=== PATIENT | male | born 1965 | race Hispanic/Latino ===

== ENCOUNTER 2020-02-07 15:08 | Emergency (ER) | payer SELFPAY ==
--- NOTE | 2020-02-07 16:03 | RAD REPORT ---
EXAM DESCRIPTION: CT - Head Brain Wo Cont - 02/07/2020 3:52 pm CLINICAL HISTORY: CASH'S PALSY Headache, drowsiness COMPARISON: No comparisons TECHNIQUE: All CT scans are performed using dose optimization technique as appropriate and may inclu de automated exposure control or mA/KV adjustment according to patient size. FINDINGS: No intracranial hemorrhage, hydrocephalus or extra-axial fluid collection.No areas of brai n edema or evidence of midline shift. The paranasal sinuses and mastoids are clear. The calvarium is intact. IMPRESSION: No acute intracranial abnormality.
--- NOTE | 2020-02-07 16:08 | ER ---
Nurse's Notes [facility] Name: Bao Remy Age: 54 yrs Sex: Male : 1965 Arrival Date: 02/07/2020 Time: 15:13 Bed 13 Private MD: Diagnosis: Muse's palsy Presentation: 02/06 15:19 Chief complaint: Patient states: Facial droop on R side, tearing of R eye, unable to ca1 blink on R eye. Started yesterday morning. A\T\Ox4, no drift. No slurring of speech. Denies numbness or weakness on face or one side of the body. Coronavirus screen: Patient denies a cough. Patient denies shortness of breath or difficulty breathing. Patient denies measured and/or subjective temperature greater than 100.4F prior to today's visit. Patient denies travel on a cruise ship or to a country the [facility] currently lists as an affected area. Patient denies contact with known and/or suspected case of COVID-19. Proceed with normal triage. Ebola Screen: Patient negative for fever greater than or equal to 101.5 degrees Fahrenheit, and additional compatible Ebola Virus Disease symptoms Patient denies exposure to infectious person. Patient denies travel to an Ebola-affected area in the 21 days before illness onset. No symptoms or risks identified at this time. Initial Sepsis Screen: Does the patient meet any 2 criteria? No. Patient's initial sepsis screen is negative. Does the patient have a suspected source of infection? No. Patient's initial sepsis screen is negative. Risk Assessment: Do you want to hurt yourself or someone else? Patient reports no desire to harm self or others. Onset of symptoms was February 07, 2020. 15:19 Method Of Arrival: Ambulatory ca1 15:19 Acuity: BRITTANY 3 ca1 16:57 Note no stroke activation. Muse's Palsy. ks7 16:58 No acute neurological deficit is noted. Pre-hospital glucose is not applicable to this ks7 patient. Triage Assessment: 15:43 The onset of the patients symptoms was more than six hours ago. General: Appears ks7 uncomfortable, facial droop, eye droop, mouth droop to R side only. equal sebd teacher strengh, no deficits in extremities. slurred speech. Pain: Denies pain. Neuro: Reports numbness in face right side since woke up yesterday morning with sx. 16:59 General: Behavior is calm, cooperative. ks7 16:59 The onset of the patients symptoms was February 06, 2020 at 08:20. ks7 BULL RIDER: 15:43 LMP N/A - ks7 Stroke Activation: Physician: Stroke Attending; Name: ; Notified At: ; Arrived At: Physician: Chief Stroke Resident; Name: ; Notified At: ; Arrived At: Physician: Stroke Resident; Name: ; Notified At: ; Arrived At: Physician: ED Attending; Name: ; Notified At: ; Arrived At: Physician: ED Resident; Name: ; Notified At: ; Arrived At: 17:00 none. ks7 Historical: - Allergies: 15:23 No Known Allergies; ca1 - PMHx: 15:23 Hypertension; ca1 - PSHx: 15:23 None; ca1 - Immunization history:: Adult Immunizations up to date. - Social history:: Smoking status: Patient reports the use of cigarette tobacco products, smokes one-half pack cigarettes per day. Screenin:24 VAN Screening: Arm Drift: Patient shows no arm weakness. Patient is VAN negative. ca1 Visual Disturbance: No visual disturbance noted. Aphasia: No aphasia noted. Neglect: No neglect noted. 15:45 Abuse screen: Denies threats or abuse. Denies injuries from another. Nutritional ks7 screening: No deficits noted. Tuberculosis screening: No symptoms or risk factors identified. Fall Risk None identified. Assessment: 16:02 VAN Scoring: Arm Drift: Patients demonstrates NO arm weakness. Patient is VAN Negative. ks7 Visual Disturbance: No visual disturbance noted. Aphasia: No aphasia noted. Neglect: No neglect noted. The patient has not been NPO before screening. The patient is alert, and able to follow commands. The patient does not exhibit slurred or garbled speech. The patient is not exhibiting difficulty speaking. The patient is exhibiting difficulty understanding words. The patient is able to swallow own secretions with no drooling or need for suction. Patient tolerated one teaspoon of water. No drooling, immediate coughing, gurgling, or clearing of the throat was noted. The patient tolerated 90mL of water. No drooling, immediate coughing, gurgling, or clearing of the throat was noted. The patient passed the bedside swallow screening. Oral medications may be given as ordered. Contact Physician for further diet orders. Provider notified of bedside swallow screening results: Kalro MENDEZ. T-PA (Activase) Screening: Indications: Definite evidence of stroke, ischemic, embolic, or hypertensive: Treatment will start within 4.5 hours onset of symptoms: No. No evidence of intracranial hemorrhage or CT of head and no evidence of peripheral hemorrhage or recent CVA: Consent for thrombolytic therapy: Contraindications:. 16:05 General: Appears in no apparent distress. Neuro: Reports pt states he woke up yesterday ks7 with facial droop, mouth droop. denies CHAVEZ and pain, no swallowing issues, no extremity weakness. aaox4. 16:56 Reassessment: Patient is alert, oriented x 3, equal unlabored respirations, skin ks7 warm/dry/pink. CT wnl. pt dx Muse's Palsy, not stroke.. Vital Signs: 15:19 BP 174 / 99; Pulse 82; Resp 17 S; Temp 98.1(TE); Pulse Ox 97% on R/A; Weight 106.59 kg ca1 (R); Height 5 ft. 10 in. (177.80 cm) (R); 15:47 BP 111 / 57; Pulse 86; Resp 18; Temp 97.9(TE); Pulse Ox 98% ; Pain 0/10; ks7 16:45 BP 115 / 62; Pulse 80; Resp 18; Temp 98(TE); Pulse Ox 98% ; Pain 0/10; ks7 15:19 Body Mass Index 33.72 (106.59 kg, 177.80 cm) ca1 NIH Stroke Scale Scores: 16:02 NIHSS Score: 3 ks7 ED Course: 15:13 Patient arrived in ED. mr 15:23 Triage completed. ca1 15:23 Arm band placed on right wrist. ca1 15:31 Hallie Campos, ELVIN is Primary Nurse. ks7 15:37 Karlo Cardoso PA is PHCP. jmm 15:37 Heriberto Mckinnon MD is Attending Physician. jmm 15:45 Patient has correct armband on for positive identification. Bed in low position. Call ks7 light in reach. Side rails up X2. 15:45 No provider procedures requiring assistance completed. ks7 15:52 CT Head Brain wo Cont In Process Unspecified. EDMS 15:[address] ks7 16:07 Masoud Jonas MD is Referral Physician. [facility] 16:56 Patient did not have IV access during this emergency room visit. ks7 Administered Medications: No medications were administered Point of Care Testing: Blood Glucose: 16:59 Blood Glucose: 128 mg/dL; ks7 Ranges: Outcome: 16:07 Discharge ordered by . [facility] 16:56 Discharged to home ambulatory. ks7 16:56 Condition: stable 16:56 Discharge instructions given to patient, Instructed on discharge instructions, medication usage, Demonstrated understanding of instructions, medications, Prescriptions given X 2. 17:00 Patient left the ED. ks7 NIH Stroke Scale - NIH Stroke Score Date: 02/07/2020 Time: 16:02 Total Score = 3 1a. Level of Consciousness (LOC) - 0(Alert) 1b. Level of Consciousness (LOC) (Year \T\ Age) - 0(Both) 1c. LOC Commands (Open \T\ Closes Eyes/Bullard Operator) - 0(Both) 2. Best Gaze (Lateral Gaze Paresis) - 0(Normal) 3. Visual Field Loss - 0(No visual loss) 4. Facial Palsy - 2(Partial paralysis) 5a. Left Arm: Motor (10-second hold) - 0(No drift) 5b. Right Arm: Motor (10-second hold) - 0(No drift) 6a. Left Leg: Motor (5-second hold - always test supine) - 0(No drift) 6b. Right Leg: Motor (5-second hold - always test supine) - 0(No drift) 7. Limb Ataxia (finger/nose \T\ heel/connolly - test with eyes open) - 0(Absent) 8. Sensory Loss (pinprick arms/legs/face) - 1(Mild to moderate loss) 9. Best Language: Aphasia (description/naming/reading) - 0(No aphasia) 10. Dysarthria (speech clarity - read or repeat words) - 0(Normal) 11. Extinction and Inattention (visual/tactile/auditory/spatial/personal) - 0(No abnormality) Initials: ks7 Signatures: Dispatcher [employer] EDMS Karlo Cardoso PA PA jmm Rivera, Mary mr Renetta Hollins RN RN ca1 Songcuan, Kathleen, RN RN ks7
--- NOTE | 2020-02-07 16:08 | EDPHYS ---
Physician Documentation [facility] Name: Bao Remy Age: 54 yrs Sex: Male : 1965 Arrival Date: 02/07/2020 Time: 15:13 Bed 13 Private MD: ED Physician Heriberto Mckinnon HPI: 02/06 16:00 This 54 yrs old Male presents to ER via Ambulatory with complaints of Facial jmm Droop, Numbness Of Face. 16:00 The patient presents to the emergency department with facial droop. Onset: The jmm symptoms/episode began/occurred acutely, 1 day(s) ago. Associated signs and symptoms: Pertinent negatives: weakness, fever, cough. This is a 54 year old male with a history of htn that presents to the ED with complaints of right sided facial droop beginning yesterday. Denies recent coughy, congestion. Denies right upper or lower extremity weakness. . 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 - Social history:: Smoking status: Patient reports the use of cigarette tobacco products, smokes one-half pack cigarettes per day. ROS: 16:00 Constitutional: Negative for fever, chills, and weight loss, Cardiovascular: Negative jmm for chest pain, palpitations, and edema, Respiratory: Negative for shortness of breath, cough, wheezing, and pleuritic chest pain. 16:00 Neuro: Positive for facial droop. 16:00 All other systems are negative. Exam: 16:00 Constitutional: This is a well developed, well nourished patient who is awake, alert, jmm and in no acute distress. Head/Face: atraumatic. Eyes: EOMI, no conjunctival erythema appreciated ENT: Moist Mucus Membranes Neck: Trachea midline, Supple Chest/axilla: Normal chest wall appearance and motion. Cardiovascular: Regular rate and rhythm. No edema appreciated Respiratory: Normal respirations, no respiratory distress appreciated Abdomen/GI: Non distended, soft Back: Normal ROM Skin: General appearance color normal MS/ Extremity: Moves all extremities, no obvious deformities appreciated, no edema noted to the lower extremities 16:00 Neuro: Orientation: is normal, Mentation: is normal, Memory: is normal, Cerebellar function: normal finger to nose testing, Motor: Gait: is steady, right sided facial droop noted which includes the right eyebrow. . 16:00 Psych: Behavior/mood is pleasant, cooperative. Vital Signs: 15:19 BP 174 / 99; Pulse 82; Resp 17 S; Temp 98.1(TE); Pulse Ox 97% on R/A; Weight 106.59 kg ca1 (R); Height 5 ft. 10 in. (177.80 cm) (R); 15:47 BP 111 / 57; Pulse 86; Resp 18; Temp 97.9(TE); Pulse Ox 98% ; Pain 0/10; ks7 16:45 BP 115 / 62; Pulse 80; Resp 18; Temp 98(TE); Pulse Ox 98% ; Pain 0/10; ks7 15:19 Body Mass Index 33.72 (106.59 kg, 177.80 cm) ca1 NIH Stroke Scale Scores: 16:02 NIHSS Score: 3 ks7 MDM: 15:55 Patient medically screened. [facility] 16:05 Data reviewed: vital signs, nurses notes. Counseling: I had a detailed discussion with [facility] the patient and/or guardian regarding: the historical points, exam findings, and any diagnostic results supporting the discharge/admit diagnosis, radiology results, the need for outpatient follow up, to return to the emergency department if symptoms worsen or persist or if there are any questions or concerns that arise at home. ED course: CT negative. PE findings consistent with bells palsy. Patient advised to follow up with neuro for reevaluation. Patient is otherwise given strict return precautions. Patient understood and agrees with the plan of care. . 02/06 16:11 Order name: Glucose, Ancillary Testing; Complete Time: 16:13 EDMS 02/06 15:24 Order name: CT Head Brain wo Cont; Complete Time: 16:05 ca1 Administered Medications: No medications were administered Point of Care Testing: Blood Glucose: 16:59 Blood Glucose: 128 mg/dL; ks7 Ranges: Critical Glucose Levels:Adult <50 mg/dl or >400 mg/dl <40 mg/dl or >180 mg/dl Disposition: 18:17 Co-signature as Attending Physician, Heriberto Mckinnon MD. rn Disposition: 02/07/20 16:07 Discharged to Home. Impression: Muse's palsy. - Condition is Stable. - Discharge Instructions: Muse Palsy, Adult. - Prescriptions for Prednisone 20 mg Oral Tablet - take 3 tablets by ORAL route once daily for 12 days Please take 3 tabs by mouth daily for 3 days, then take 2 tabs by mouth daily for 3 days, then take 1 tab by mouth daily for 3 days, then take 1/2 tab by mouth daily for 3 days; 20 tablet. Valtrex 1 g Oral Tablet - take 1 tablet by ORAL route every 8 hours for 7 days; 21 tablet. - Medication Reconciliation Form, Thank You Letter, Antibiotic Education, Prescription Opioid Use form. - Follow up: Masoud Jonas MD; When: 2 - 3 days; Reason: Recheck today's complaints, Continuance of care, Re-evaluation by your physician. NIH Stroke Scale - NIH Stroke Score Date: 02/07/2020 Time: 16:02 Total Score = 3 1a. Level of Consciousness (LOC) - 0(Alert) 1b. Level of Consciousness (LOC) (Year \T\ Age) - 0(Both) 1c. LOC Commands (Open \T\ Closes Eyes/Flight Operations Manager) - 0(Both) 2. Best Gaze (Lateral Gaze Paresis) - 0(Normal) 3. Visual Field Loss - 0(No visual loss) 4. Facial Palsy - 2(Partial paralysis) 5a. Left Arm: Motor (10-second hold) - 0(No drift) 5b. Right Arm: Motor (10-second hold) - 0(No drift) 6a. Left Leg: Motor (5-second hold - always test supine) - 0(No drift) 6b. Right Leg: Motor (5-second hold - always test supine) - 0(No drift) 7. Limb Ataxia (finger/nose \T\ heel/connolly - test with eyes open) - 0(Absent) 8. Sensory Loss (pinprick arms/legs/face) - 1(Mild to moderate loss) 9. Best Language: Aphasia (description/naming/reading) - 0(No aphasia) 10. Dysarthria (speech clarity - read or repeat words) - 0(Normal) 11. Extinction and Inattention (visual/tactile/auditory/spatial/personal) - 0(No abnormality) Initials: ks7 Signatures: Dispatcher [employer] EDMS MickaKarlo calloway PA PA jmm Nieto, Roman, MD MD rn Acob, Renetta RN RN ca1 Hallie Campos RN RN ks7 Corrections: (The following items were deleted from the chart) 17:00 16:07 02/07/2020 16:07 Discharged to Home. Impression: Muse's palsy. Condition ks7 is Stable. Forms are Medication Reconciliation Form, Thank You Letter, Antibiotic Education, Prescription Opioid Use. Follow up: Masoud Jonas; When: 2 - 3 days; Reason: Recheck today's complaints, Continuance of care, Re-evaluation by your physician. bryan
[2020-02-08 06:57] VITALS: BP 111/57; TEMP 97.9; O2SAT 98
== END 2020-02-07 17:00 | disposition home or self-care (01) ==
LOC: ER 15:08 → EDSEX 15:08 → ER 17:00
DX: G51.0 Bell's palsy (principal); I10 Essential (primary) hypertension; F17.210 Nicotine dependence, cigarettes, uncomplicated
CPT/HCPCS: 70450; 82947; 99284

== ENCOUNTER 2025-04-19 07:50 | Inpatient (IN) | payer SELFPAY ==
--- OUTSIDE RECORDS SUMMARY | 2025-04-19 07:56 | XMS REPORT | Continuity of Care Document ---
Author Name Unknown Address [address] [facility] [address] [place] [address] [facility] [address] [facility]. [address] [place] [address] Care Team Providers Care Supervisor [employer] Name Role Phone Saba Nunez Primary Care Physician [phone] Medications Ordered Medication Name Filled Medication Name Start Date Stop Date Current Medication? Ordering Clinician Indication Dosage Frequency Signature (SIG) Comments Components Source losartan 100 mg-hydrochl orothiazide 25 mg tablet 2023-07 00:00: 00 Yes 1mg bK Jiménez amlodipine 10 mg tablet 2023-07 2 00:00: 00 Yes 1mg Kb Jiménez losartan 100 mg-hydrochl orothiazide 25 mg tablet 8-08 00:00: 00 Yes 1mg Kb Jiménez amlodipine 10 mg tablet 808 00:00: 00 Yes 1mg Kb Jiménez amlodipine 10 mg tablet 10-05 00:00: 00 Yes 1mg Kb Jiménez hydrochloro thiazide 25 mg tablet 10-05 00:00: 00 Yes 1mg Kb iJménez losartan 100 mg tablet 10-05 00:00: 00 Yes 1mg Kb Jiménez TAKE 1 TABLET DAILY. 03-26 00:00: 00 10-05 00:00 :00 No 10 Kb Jiménez TAKE 1 TABLET DAILY. 03-26 00:00: 00 10-05 00:00 :00 No 25 Kb Jiménez TAKE 1 TABLET ONCE DAILY. 03-26 00:00: 00 10-05 00:00 :00 No 100 Kb Jiménez TAKE 1 TABLET DAILY. 11-05 00:00: 00 10-05 00:00 :00 No 25 Kb Jiménez TAKE 1 TABLET DAILY. 11-05 00:00: 00 10-05 00:00 :00 No 10 Kb Jiménez BENZONATATE 200MG CAP 2021-07 00:00: 00 Yes Kb Jiménez AMOX/K CLAV [id number] 5935-1 2-19 00:00: 00 Yes Kb Jiménez PREDNISONE 20MG 2021-07 00:00: 00 Yes [id number] Kb Jiménez TAKE 1 TABLET ONCE DAILY. 2021-07 00:00: 00 10-05 00:00 :00 No Kb Jiménez Dose Unknown 01-17 00:00: 00 No Dose Unknown 01-17 00:00: 00 No losartan 100 mg tablet 01-17 00:00: 00 No 1mg hydrochloro thiazide 25 mg tablet 01-17 00:00: 00 No 1mg amlodipine 10 mg tablet 01-17 00:00: 00 No 1mg losartan 100 mg tablet 01-17 00:00: 00 No 1mg losartan 100 mg tablet 01-17 00:00: 00 Yes 1mg Kb Jiménez Dose Unknown 01-17 00:00: 00 Yes Kb Jiménez Dose Unknown 01-17 00:00: 00 Yes Kb Jiménez amlodipine 10 mg tablet 10-15 00:00: 00 No 1mg hydrochloro thiazide 25 mg tablet 10-15 00:00: 00 No 1mg losartan 100 mg tablet 10-15 00:00: 00 No 1mg amlodipine 10 mg tablet 10-15 00:00: 00 No 1mg hydrochloro thiazide 25 mg tablet 10-15 00:00: 00 No 1mg losartan 100 mg tablet 10-15 00:00: 00 No 1mg amlodipine 10 mg tablet 10-15 00:00: 00 Yes 1mg Kb Jiménez hydrochloro thiazide 25 mg tablet 10-15 00:00: 00 Yes 1mg Kb Jiménez losartan 100 mg tablet 10-15 00:00: 00 Yes 1mg Kb Jiménez Dose Unknown 2020-07 2 00:00: 00 No Dose Unknown 2020-07 2 00:00: 00 No Dose Unknown 2020-07 00:00: 00 No Dose Unknown 2020-07 00:00: 00 No Dose Unknown 2020-07 2 00:00: 00 No Dose Unknown 2020-07 00:00: 00 No Dose Unknown 2020-07 00:00: 00 Yes Kb Jiménez Dose Unknown 2020-07 2 00:00: 00 Yes Kb Jiménez Dose Unknown 2020-07 2 00:00: 00 Yes Kb Jiménez hydrochloro thiazide 25 mg tablet 8- 00:00: 00 No 1mg amlodipine 10 mg tablet 0 8- 00:00: 00 No 1mg losartan 100 mg tablet 0 8-31 00:00: 00 No 1mg hydrochloro thiazide 25 mg tablet 0 8-31 00:00: 00 No 1mg amlodipine 10 mg tablet 0 8-31 00:00: 00 No 1mg losartan 100 mg tablet 0 8-31 00:00: 00 No 1mg hydrochloro thiazide 25 mg tablet 0 8-31 00:00: 00 Yes 1mg Kb Jiménez amlodipine 10 mg tablet 0 8-31 00:00: 00 Yes 1mg Kb Jiménez losartan 100 mg tablet 0 8-31 00:00: 00 Yes 1mg Kb Jiménez amlodipine 10 mg tablet 0 5-18 00:00: 00 No 1mg hydrochloro thiazide 25 mg tablet 0 5-18 00:00: 00 No 1mg amlodipine 10 mg tablet 0 5-18 00:00: 00 No 1mg hydrochloro thiazide 25 mg tablet 0 5-18 00:00: 00 No 1mg losartan 100 mg tablet 0 5-18 00:00: 00 No 1mg losartan 100 mg tablet 0 5-18 00:00: 00 No 1mg amlodipine 10 mg tablet 0 5-18 00:00: 00 Yes 1mg Kb Jiménez hydrochloro thiazide 25 mg tablet 12-04 00:00: 00 Yes 1mg Kb Jiménez losartan 100 mg tablet 12-04 00:00: 00 Yes 1mg Kb Jiménez hydrochloro thiazide 25 mg tablet 2- 00:00: 00 No 1mg amlodipine 10 mg tablet 2- 00:00: 00 No 1mg losartan 100 mg tablet 2- 00:00: 00 No 1mg hydrochloro thiazide 25 mg tablet 2- 00:00: 00 No 1mg amlodipine 10 mg tablet 2 00:00: 00 No 1mg losartan 100 mg tablet 08-28 00:00: 00 No 1mg hydrochloro thiazide 25 mg tablet 2 00:00: 00 Yes 1mg Kb Jiménez amlodipine 10 mg tablet 08-28 00:00: 00 Yes 1mg Kb Jiménez losartan 100 mg tablet 08-28 00:00: 00 Yes 1mg Kb Jiménez amlodipine 10 mg tablet 2019-07 00:00: 00 No 1mg losartan 100 mg tablet 2019-07 00:00: 00 No 1mg amlodipine 10 mg tablet 2019-07 00:00: 00 No 1mg losartan 100 mg tablet 2019-07 00:00: 00 No 1mg amlodipine 10 mg tablet 2019-07 00:00: 00 Yes 1mg Kb Jiménez losartan 100 mg tablet 2019-07 00:00: 00 Yes 1mg Kb Jiménez amlodipine 10 mg tablet 2019-07 0- 00:00: 00 No 1mg amlodipine 10 mg tablet 2019-07 00:00: 00 No 1mg amlodipine 10 mg tablet 2019-07 0 00:00: 00 Yes 1mg Kb Jiménez amlodipine 10 mg tablet 04-17 00:00: 00 No 1mg amlodipine 10 mg tablet 04-17 00:00: 00 No 1mg amlodipine 10 mg tablet 04-17 00:00: 00 Yes 1mg Kb Jiménez amlodipine 10 mg tablet 2018-07 00:00: 00 No 1mg amlodipine 10 mg tablet 2018-07 00:00: 00 No 1mg amlodipine 10 mg tablet 2018-07 00:00: 00 Yes 1mg Kb Karo Jiménez amlodipine 10 mg tablet 2018-07 00:00: 00 No 1mg amlodipine 10 mg tablet 2018-07 00:00: 00 No 1mg amlodipine 10 mg tablet 2018-07 00:00: 00 Yes 1mg Kb Karo Jiménez metoprolol tartrate 50 mg tablet 01-24 00:00: 00 No 1mg metoprolol tartrate 50 mg tablet 01-24 00:00: 00 No 1mg metoprolol tartrate 50 mg tablet 01-24 00:00: 00 Yes 1mg Kb F Tino Vital Signs Vital Name Observation Time Observation Value Comments S ource BP Systolic 2024-08-19 14:34:00 103 mm[Hg] Step hen F Tino BP Diastolic 2024-08-19 14:34:00 67 mm[Hg] Loyd phen F Tino Weight Measured 2024-08-19 14:34:00 194.80 pounds Kb F Tino Height Measured 2024-08-19 14:34:00 67.00 inches Kb F Tino Body Temperature 2024-08-19 14:34:00 97.70 degrees Kb F Tino Heart Rate 2024-08-19 14:34:00 89.00 /min Lexie en F Tino Respiratory Rate 2024-08-19 14:34:00 18.00 /min Kb F Tino BP Systolic 2024-06-22 13:54:00 150 mm[Hg] Step hen F Tino BP Diastolic 2024-06-22 13:54:00 87 mm[Hg] Loyd phen F Tino Weight Measured 2024-06-22 13:54:00 207.20 pounds Kb F Tino Height Measured 2024-06-22 13:54:00 67.00 inches Kb F Tino Body Temperature 2024-06-22 13:54:00 99.20 degrees Kb F Tino Heart Rate 2024-06-22 13:54:00 86.00 /min Lexie en F Tino Respiratory Rate 2024-06-22 13:54:00 16.00 /min Kb F Tino Weight Measured 2024-02-25 14:44:00 199.80 pounds Kb F Tino Height Measured 2024-02-25 14:44:00 67.00 inches Kb F Tino Body Temperature 2024-02-25 14:44:00 97.30 degrees Kb F Tino Heart Rate 2024-02-25 14:44:00 88.00 /min Lexie en F Tino Respiratory Rate 2024-02-25 14:44:00 18.00 /min Kb F Tino BP Systolic 2024-02-25 14:44:00 121 mm[Hg] Step hen F Tino BP Diastolic 2024-02-25 14:44:00 73 mm[Hg] Loyd phen F Tino BP Systolic 2023-10-06 14:34:00 160 mm[Hg] Step hen F Tino BP Diastolic 2023-10-06 14:34:00 97 mm[Hg] Loyd phen F Tino Weight Measured 2023-10-06 14:34:00 208.00 pounds Kb F Tino Height Measured 2023-10-06 14:34:00 67.00 inches Kb F Tino Body Temperature 2023-10-06 14:34:00 98.10 degrees Kb F Tino Heart Rate 2023-10-06 14:34:00 84.00 /min Lexie en F Tino Respiratory Rate 2023-10-06 14:34:00 18.00 /min Kb F Tino BP Systolic 2023-03-26 13:26:00 137 mm[Hg] Step hen F Tino BP Diastolic 2023-03-26 13:26:00 74 mm[Hg] Loyd phen F Tino Weight Measured 2023-03-26 13:26:00 207.00 pounds Kb F Tino Height Measured 2023-03-26 13:26:00 67.00 inches Kb F Tino Body Temperature 2023-03-26 13:26:00 98.60 degrees Kb F Tino Heart Rate 2023-03-26 13:26:00 77.00 /min Lexie en F Tino Respiratory Rate 2023-03-26 13:26:00 Kb F Tino BP Systolic 2022-11-05 13:36:00 184 mm[Hg] Step hen F Tino BP Diastolic 2022-11-05 13:36:00 94 mm[Hg] Loyd phen F Tino Weight Measured 2022-11-05 13:36:00 207.40 pounds Kb F Tino Height Measured 2022-11-05 13:36:00 67.00 inches Kb F Tino Body Temperature 2022-11-05 13:36:00 98.30 degrees Kb F Tino Heart Rate 2022-11-05 13:36:00 73.00 /min Lexie en F Tino Respiratory Rate 2022-11-05 13:36:00 18.00 /min Kb F Tino BP Systolic 2022-06-13 13:23:00 137 mm[Hg] Step hen F Tino BP Diastolic 2022-06-13 13:23:00 81 mm[Hg] Loyd phen F Tino Weight Measured 2022-06-13 13:23:00 198.80 pounds Kb F Tino Height Measured 2022-06-13 13:23:00 67.00 inches Kb F Tino Body Temperature 2022-06-13 13:23:00 98.60 degrees Kb F Tino Heart Rate 2022-06-13 13:23:00 92.00 /min Lexie en F Tino Respiratory Rate 2022-06-13 13:23:00 18.00 /min Kb F Tino BP Systolic 2022-01-17 17:45:00 137 mm[Hg] Step hen F Tino BP Diastolic 2022-01-17 17:45:00 77 mm[Hg] Loyd phen F Tino Weight Measured 2022-01-17 17:45:00 213.20 pounds Kb F Tino Height Measured 2022-01-17 17:45:00 67.00 inches Kb F Tino Body Temperature 2022-01-17 17:45:00 98.40 degrees Kb F Tino Heart Rate 2022-01-17 17:45:00 89.00 /min Lexie en F Tino Respiratory Rate 2022-01-17 17:45:00 Kb F Tino BP Systolic 2021-10-15 13:29:00 133 mm[Hg] Step hen F Tino BP Diastolic 2021-10-15 13:29:00 86 mm[Hg] Loyd phen F Tino Weight Measured 2021-10-15 13:29:00 219.60 pounds Kb F Tino Height Measured 2021-10-15 13:29:00 67.00 inches Kb F Tino Body Temperature 2021-10-15 13:29:00 98.30 degrees Kb F Tino Heart Rate 2021-10-15 13:29:00 96.00 /min Lexie en F Tino Respiratory Rate 2021-10-15 13:29:00 16.00 /min Kb F Tino BP Systolic 2021-06-27 14:38:00 128 mm[Hg] Step hen F Tino BP Diastolic 2021-06-27 14:38:00 78 mm[Hg] Loyd phen F Tino Weight Measured 2021-06-27 14:38:00 220.00 pounds Kb F Tino Height Measured 2021-06-27 14:38:00 67.00 inches Kb F Tino Body Temperature 2021-06-27 14:38:00 98.30 degrees Kb F Tino Heart Rate 2021-06-27 14:38:00 84.00 /min Lexie en F Tino Respiratory Rate 2021-06-27 14:38:00 Kb F Tino BP Systolic 2021-03-19 13:49:00 138 mm[Hg] Step hen F Tino BP Diastolic 2021-03-19 13:49:00 78 mm[Hg] Loyd phen F Tino Weight Measured 2021-03-19 13:49:00 230.40 pounds Kb F Tino Height Measured 2021-03-19 13:49:00 67.00 inches Kb F Tino Body Temperature 2021-03-19 13:49:00 98.60 degrees Kb F Tino Heart Rate 2021-03-19 13:49:00 93.00 /min Lexie en F Tino Respiratory Rate 2021-03-19 13:49:00 Kb F Tino BP Systolic 2020-12-04 15:00:00 155 mm[Hg] Step hen F Tino BP Diastolic 2020-12-04 15:00:00 88 mm[Hg] Loyd phen F Tino Weight Measured 2020-12-04 15:00:00 249.40 pounds Kb F Tino Height Measured 2020-12-04 15:00:00 67.00 inches Kb F Tino Body Temperature 2020-12-04 15:00:00 98.20 degrees Kb F Tino Heart Rate 2020-12-04 15:00:00 96.00 /min Lexie en F Tino Respiratory Rate 2020-12-04 15:00:00 16.00 /min Kb Jiménez BP Systolic 2020-08-28 14:27:00 163 mm[Hg] BP Diastolic 2020-08-28 14:27:00 95 mm[Hg] Weight Measured 2020-08-28 14:27:00 247.40 pounds Height Measured 2020-08-28 14:27:00 67.00 inches Body Temperature 2020-08-28 14:27:00 Heart Rate 2020-08-28 14:27:00 98.00 /min Respiratory Rate 2020-08-28 14:27:00 16.00 /min Respiratory Rate 2020-05-23 09:02:00 16.00 /min BP Systolic 2020-05-23 09:02:00 162 mm[Hg] BP Diastolic 2020-05-23 09:02:00 95 mm[Hg] Weight Measured 2020-05-23 09:02:00 239.20 pounds Height Measured 2020-05-23 09:02:00 67.00 inches Body Temperature 2020-05-23 09:02:00 99.40 degrees Heart Rate 2020-05-23 09:02:00 88.00 /min BP Systolic 2020-04-17 17:27:00 224 mm[Hg] BP Diastolic 2020-04-17 17:27:00 113 mm[Hg] Weight Measured 2020-04-17 17:27:00 238.20 pounds Height Measured 2020-04-17 17:27:00 67.00 inches Body Temperature 2020-04-17 17:27:00 97.90 degrees Heart Rate 2020-04-17 17:27:00 79.00 /min Respiratory Rate 2020-04-17 17:27:00 BP Systolic 2019-06-24 16:19:00 168 mm[Hg] BP Diastolic 2019-06-24 16:19:00 92 mm[Hg] Weight Measured 2019-06-24 16:19:00 229.40 pounds Height Measured 2019-06-24 16:19:00 67.00 inches Body Temperature 2019-06-24 16:19:00 100.40 degrees Heart Rate 2019-06-24 16:19:00 80.00 /min Respiratory Rate 2019-06-24 16:19:00 16.00 /min BP Systolic 2019-06-01 15:17:00 205 mm[Hg] BP Diastolic 2019-06-01 15:17:00 91 mm[Hg] Weight Measured 2019-06-01 15:17:00 233.60 pounds Height Measured 2019-06-01 15:17:00 67.00 inches Body Temperature 2019-06-01 15:17:00 99.00 degrees Heart Rate 2019-06-01 15:17:00 76.00 /min Respiratory Rate 2019-06-01 15:17:00 16.00 /min Plan of Care Planned Activity Planned Date Details Comments Source Goal Plan of Care Note [code = 24877-4] Goal Plan of Care Note [code = 76046-2] Goal Plan of Care Note [code = 02358-5] Goal Plan of Care Note [code = 76868-3] Goal Plan of Care Note [code = 37741-2] Goal Plan of Care Note [code = 40259-9] Goal Plan of Care Note [code = 51580-0] Goal Plan of Care Note [code = 73851-5] Goal Plan of Care Note [code = 05916-6] Goal Plan of Care Note [code = 06208-0] Goal Plan of Care Note [code = 36875-4] Goal Plan of Care Note [code = 56935-7] Goal Plan of Care Note [code = 58258-2] Goal Plan of Care Note [code = 89997-8] Goal Plan of Care Note [code = 04041-2] Goal Plan of Care Note [code = 67494-9] Goal Plan of Care Note [code = 55280-9] Encounters Start Date/Time End Date/Time Encounter Type Admission Type Attending [facility] Care Department Encounter ID Source 2024-08-19 14:28:37 2024-08-19 14:28:37 Outpatient [facility] [id number] Kb Jiménez 2024-08-19 00:00:00 2024-08-19 00:00:00 Outpatient Visit [id number] Kb Jiménez 2024-06-22 13:47:58 2024-06-22 13:47:58 Outpatient [facility] [id number] Kb Jiménez 2024-06-22 00:00:00 2024-06-22 00:00:00 Outpatient Visit [facility] [id number] Kb Jiménez 2024-02-25 14:34:19 2024-02-25 14:34:19 Outpatient [facility] [id number] Kb Jiménez 2024-02-25 00:00:00 2024-02-25 00:00:00 Outpatient Visit [facility] [id number] Kb Jiménez 2023-10-06 14:27:49 2023-10-06 14:27:49 Outpatient [facility] [id number] Kb Jiménez 2023-03-26 13:21:44 2023-03-26 13:21:44 Outpatient [facility] [id number] Kb Jiménez 2022-11-05 13:30:14 2022-11-05 13:30:14 Outpatient [facility] [id number] Kb Jiménez 2022-07-18 16:12:28 2022-07-18 16:12:28 Outpatient [facility] [id number] Kb Jiménez 2022-06-13 13:18:55 2022-06-13 13:18:55 Outpatient [facility] [id number] Kb Jiménez 2022-06-13 00:00:00 2022-06-13 00:00:00 Outpatient Visit [id number] 2022-01-17 00:00:00 2022-01-17 00:00:00 Outpatient Visit [id number] Results Test Description Test Time Test Comments Results Result Co mments Source COMPREHENSIVE METABOLIC [id number] 03:20:09* Test Item Value Reference Range Interpretation Comme nts GLUCOSE (test code = 2217) 119 MG/DL 70-99 H BUN (test code = 2208) 19 MG/DL 6-20 CREATININE (test code = 2214) 1.26 MG/DL 0.80-1.40 eGFR (2020 CKD-EPI) (test code = 78687) 67 ML/MIN/1.73 >60 CALC BUN/CREAT (test code = 2235) 15 RATIO 6-28 SODIUM (test code = 223) 134 MEQ/L 133-146 POTASSIUM (test code = 2228) 4.4 MEQ/L 3.5-5.4 CHLORIDE (test code = 2215) 100 MEQ/L 95-107 CARBON DIOXIDE (test code = 2206) 22 MEQ/L 19-31 CALCIUM (test code = 2209) 9.6 MG/DL 8.5-10.5 PROTEIN, TOTAL (test code = 2229) 7.9 G/DL 6.1-8.3 ALBUMIN (test code = 2201) 4.5 G/DL 3.5-5.2 CALC GLOBULIN (test code = 2240) 3.4 G/DL 1.9-3.7 CALC A/G RATIO (test code = 2234) 1.3 RATIO 1.0-2.6 BILIRUBIN, TOTAL (test code = 2207) 0.6 MG/DL <=1.2 ALKALINE PHOSPHATASE (test code = 2204) 124 U/L 40-123 H AST (test code = 2218) 41 U/L 9-50 ALT (test code = 2219) 44 U/L 5-50 UNLESS OTHERWISE INDICATED, ALL TESTING PERFORMED AT [facility] [address] [place] [address] CHAR CONVEYOR TENDER: HANH ALEX M.D. CLIA NUMBER [id number] [facility]. [id number] LIPID [id number] 00:00:00* Test Item Value Reference Range Interpretation Comme nts CHOLESTEROL (test code = 2210) 139 MG/DL TRIGLYCERIDES (test code = 2232) 62 MG/DL HDL CHOLESTEROL (test code = 2220) 42 MG/DL CALC LDL CHOL (test code = 2237) 83 MG/DL RISK RATIO LDL/HDL (test cod e = 2238) 1.98 RATIO Kb Cline PrEP [id number] 00:00:00* Test Item Value Reference Range Interpretation Comme nts HIV 1/2 4TH GEN (test code = 46532) NON-REACTIVE HIV-1 RNA (test code = 888588) NON-REACTIVE HIV-2 RNA (test code = 980895) NON-REACTIVE INTERPRETATION (test code = 601069) HIV NEGATIVE Kb JiménezCOMPREHENSIVE METABOLIC [id number] 00:00:00* Test Item Value Reference Range Interpretation Comme nts GLUCOSE (test code = 2217) 119 MG/DL BUN (test code = 2208) 19 MG/DL CREATININE (test code = 2214) 1.26 MG/DL eGFR (2020 CKD-EPI) (test co de = 35879) 67 ML/MIN/1.73 CALC BUN/CREAT (test code = 2235) 15 RATIO SODIUM (test code = 2231) 134 MEQ/L POTASSIUM (test code = 2228) 4.4 MEQ/L CHLORIDE (test code = 2215) 100 MEQ/L CARBON DIOXIDE (test code = 2206) 22 MEQ/L CALCIUM (test code = 2209) 9.6 MG/DL PROTEIN, TOTAL (test code = 2229) 7.9 G/DL ALBUMIN (test code = 2201) 4.5 G/DL CALC GLOBULIN (test code = 2240) 3.4 G/DL CALC A/G RATIO (test code = 2234) 1.3 RATIO BILIRUBIN, TOTAL (test code = 2207) 0.6 MG/DL ALKALINE PHOSPHATASE (test code = 2204) 124 U/L AST (test code = 2218) 41 U/L ALT (test code = 2219) 44 U/L Kb JiménezLIPID [id number] 00:00:00* Test Item Value Reference Range Interpretation Comme nts CHOLESTEROL (test code = 2210) 139 MG/DL TRIGLYCERIDES (test code = 2232) 62 MG/DL HDL CHOLESTEROL (test code = 2220) 42 MG/DL CALC LDL CHOL (test code = 2237) 83 MG/DL RISK RATIO LDL/HDL (test cod e = 2238) 1.98 RATIO Kb JiménezHIV PrEP [id number] 00:00:00* Test Item Value Reference Range Interpretation Comme nts HIV 1/2 4TH GEN (test code = 78309) NON-REACTIVE HIV-1 RNA (test code = 088866) NON-REACTIVE HIV-2 RNA (test code = 398371) NON-REACTIVE INTERPRETATION (test code = 782527) HIV NEGATIVE Kb JiménezCOMPREHENSIVE METABOLIC [id number] 00:00:00* Test Item Value Reference Range Interpretation Comme nts GLUCOSE (test code = 2217) 119 MG/DL BUN (test code = 2208) 19 MG/DL CREATININE (test code = 2214) 1.26 MG/DL eGFR (2020 CKD-EPI) (test co de = 03745) 67 ML/MIN/1.73 CALC BUN/CREAT (test code = 2235) 15 RATIO SODIUM (test code = 2231) 134 MEQ/L POTASSIUM (test code = 2228) 4.4 MEQ/L CHLORIDE (test code = 2215) 100 MEQ/L CARBON DIOXIDE (test code = 2206) 22 MEQ/L CALCIUM (test code = 2209) 9.6 MG/DL PROTEIN, TOTAL (test code = 2229) 7.9 G/DL ALBUMIN (test code = 2201) 4.5 G/DL CALC GLOBULIN (test code = 2240) 3.4 G/DL CALC A/G RATIO (test code = 2234) 1.3 RATIO BILIRUBIN, TOTAL (test code = 2207) 0.6 MG/DL ALKALINE PHOSPHATASE (test code = 2204) 124 U/L AST (test code = 2218) 41 U/L ALT (test code = 2219) 44 U/L Kb JiménezLIPID [id number] 06:57:41* Test Item Value Reference Range Interpretation Comme nts CHOLESTEROL (test code = 2210) 161 MG/DL <200 TRIGLYCERIDES (test code = 2232) 50 MG/DL <150 HDL CHOLESTEROL (test code = 2220) 68 MG/DL >39 CALC LDL CHOL (test code = 2237) 81 MG/DL <100 NOTE: CALCULATED LDL IS BASED ON DICK-EDWARD METHOD WHICHINCLUDES ADJUSTABLE TRIGLYCERIDE:VLDL CHOLESTEROL RATIO.THIS FACTOR VARIES BY MEASURED TRIGLYCERIDE AND NON-HDLCHOLESTEROL CONCENTRATIONS WITH INCREASED CALCULATED LDL SEENIN HIGHER TRIGLYCERIDE OR LOWER NON-HDL SPECIMENS. FOR MOREINFORMATION, SEE CLIENT ANNOUNCEMENT AT [email or web address] RISK RATIO LDL/HDL (test code = 2237) 1.19 RATIO <3.55 COMPREHENSIVE METABOLIC [id number] 06:57:41* Test Item Value Reference Range Interpretation Comme nts GLUCOSE (test code = 7) 109 MG/DL 70-99 H BUN (test code = 2207) 19 MG/DL 6-20 CREATININE (test code = 2213) 1.24 MG/DL 0.80-1.40 eGFR (2020 CKD-EPI) (test code = 56194) 69 ML/MIN/1.73 >60 CALC BUN/CREAT (test code = 2234) 15 RATIO 6-28 SODIUM (test code = 2230) 140 MEQ/L 133-146 POTASSIUM (test code = 2227) 4.5 MEQ/L 3.5-5.4 CHLORIDE (test code = 2214) 103 MEQ/L 95-107 CARBON DIOXIDE (test code = 2205) 21 MEQ/L 19-31 CALCIUM (test code = 2208) 9.1 MG/DL 8.5-10.5 PROTEIN, TOTAL (test code = 2228) 7.7 G/DL 6.1-8.3 ALBUMIN (test code = 2200) 4.5 G/DL 3.5-5.2 CALC GLOBULIN (test code = 2240) 3.2 G/DL 1.9-3.7 CALC A/G RATIO (test code = 223) 1.4 RATIO 1.0-2.6 BILIRUBIN, TOTAL (test code = 2206) 0.5 MG/DL See_Comment [Automated me ssage] The system which generated this result transmitted reference range: <=1.2. The reference range was not used to interpret this result as normal/abnormal. ALKALINE PHOSPHATASE (test code = 2203) 103 U/L 40-121 AST (test code = 2218) 38 U/L 9-50 ALT (test code = 2219) 40 U/L 5-50 UNLESS OTHERWISE INDICATED, ALL TESTING PERFORMED AT [facility] [address] [place] [address] CHAR CONVEYOR TENDER: HANH ALEX M.D. CLIA NUMBER [id number] [place]. [id number] COMPREHENSIVE METABOLIC [id number] 00:00:00* Test Item Value Reference Range Interpretation Comme nts GLUCOSE (test code = 2217) 109 MG/DL BUN (test code = 2208) 19 MG/DL CREATININE (test code = 2214) 1.24 MG/DL eGFR (2020 CKD-EPI) (test co de = 12323) 69 ML/MIN/1.73 CALC BUN/CREAT (test code = 2235) 15 RATIO SODIUM (test code = 2231) 140 MEQ/L POTASSIUM (test code = 2228) 4.5 MEQ/L CHLORIDE (test code = 2215) 103 MEQ/L CARBON DIOXIDE (test code = 2206) 21 MEQ/L CALCIUM (test code = 2209) 9.1 MG/DL PROTEIN, TOTAL (test code = 2229) 7.7 G/DL ALBUMIN (test code = 2201) 4.5 G/DL CALC GLOBULIN (test code = 2240) 3.2 G/DL CALC A/G RATIO (test code = 2234) 1.4 RATIO BILIRUBIN, TOTAL (test code = 2207) 0.5 MG/DL ALKALINE PHOSPHATASE (test code = 2204) 103 U/L AST (test code = 2218) 38 U/L ALT (test code = 2219) 40 U/L Kb [place] LafayetteLIP[place] [id number] 00:00:00* Test Item Value Reference Range Interpretation Comme nts CHOLESTEROL (test code = 2210) 161 MG/DL TRIGLYCERIDES (test code = 2232) 50 MG/DL HDL CHOLESTEROL (test code = 2220) 68 MG/DL CALC LDL CHOL (test code = 2237) 81 MG/DL RISK RATIO LDL/HDL (test cod e = 2238) 1.19 RATIO Kb [place] TinoCOMPREHENSIVE METABOLIC [id number] 00:00:00* Test Item Value Reference Range Interpretation Comme nts GLUCOSE (test code = 2217) 109 MG/DL BUN (test code = 2208) 19 MG/DL CREATININE (test code = 2214) 1.24 MG/DL eGFR (2020 CKD-EPI) (test co de = 56547) 69 ML/MIN/1.73 CALC BUN/CREAT (test code = 2235) 15 RATIO SODIUM (test code = 2231) 140 MEQ/L POTASSIUM (test code = 2228) 4.5 MEQ/L CHLORIDE (test code = 2215) 103 MEQ/L CARBON DIOXIDE (test code = 2206) 21 MEQ/L CALCIUM (test code = 2209) 9.1 MG/DL PROTEIN, TOTAL (test code = 2229) 7.7 G/DL ALBUMIN (test code = 2201) 4.5 G/DL CALC GLOBULIN (test code = 2240) 3.2 G/DL CALC A/G RATIO (test code = 2234) 1.4 RATIO BILIRUBIN, TOTAL (test code = 2207) 0.5 MG/DL ALKALINE PHOSPHATASE (test code = 2204) 103 U/L AST (test code = 2218) 38 U/L ALT (test code = 2219) 40 U/L Kb JiménezLIPID [id number] 00:00:00* Test Item Value Reference Range Interpretation Comme nts CHOLESTEROL (test code = 2210) 161 MG/DL TRIGLYCERIDES (test code = 2232) 50 MG/DL HDL CHOLESTEROL (test code = 2220) 68 MG/DL CALC LDL CHOL (test code = 2237) 81 MG/DL RISK RATIO LDL/HDL (test cod e = 2238) 1.19 RATIO Kb JiménezCOMPREHENSIVE METABOLIC [id number] 00:00:00* Test Item Value Reference Range Interpretation Comme nts GLUCOSE (test code = 2217) 109 MG/DL BUN (test code = 2208) 19 MG/DL CREATININE (test code = 2214) 1.24 MG/DL eGFR (2020 CKD-EPI) (test co de = 42042) 69 ML/MIN/1.73 CALC BUN/CREAT (test code = 2235) 15 RATIO SODIUM (test code = 2231) 140 MEQ/L POTASSIUM (test code = 2228) 4.5 MEQ/L CHLORIDE (test code = 2215) 103 MEQ/L CARBON DIOXIDE (test code = 2206) 21 MEQ/L CALCIUM (test code = 2209) 9.1 MG/DL PROTEIN, TOTAL (test code = 2229) 7.7 G/DL ALBUMIN (test code = 2201) 4.5 G/DL CALC GLOBULIN (test code = 2240) 3.2 G/DL CALC A/G RATIO (test code = 2234) 1.4 RATIO BILIRUBIN, TOTAL (test code = 2207) 0.5 MG/DL ALKALINE PHOSPHATASE (test code = 2204) 103 U/L AST (test code = 2218) 38 U/L ALT (test code = 2219) 40 U/L Kb [place]IP[place] [id number] 00:00:00* Test Item Value Reference Range Interpretation Comme nts CHOLESTEROL (test code = 2210) 161 MG/DL TRIGLYCERIDES (test code = 2232) 50 MG/DL HDL CHOLESTEROL (test code = 2220) 68 MG/DL CALC LDL CHOL (test code = 2237) 81 MG/DL RISK RATIO LDL/HDL (test cod e = 2238) 1.19 RATIO Kb JiménezHEMOGLOBIN [id number] 03:39:09* Test Item Value Reference Range Interpretation Comme [place] HEMOGLOBIN A1c (test code = 76524) 5.3 % 4.2-5.6 UNLESS OTHERWISE INDICATED, ALL TESTING [facility]MED [facility] [employer] [address] [place] [address] CHAR CONVEYOR TENDER: FRANTZ CARBALLO M.D. CLIA NUMBER [id number] [facility] [place]. [id number] HEMOGLOBIN [id number] 00:00:00* Test Item Value Reference Range Interpretation Comme [place] HEMOGLOBIN A1c (test code = 96148) 5.3 % Kb [place] AustinHEMOGLOBIN [id number] 00:00:00* Test Item Value Reference Range Interpretation Comme [place] HEMOGLOBIN A1c (test code = 21617) 5.3 % Kb [place] AustinHEMOGLOBIN [id number] 00:00:00* Test Item Value Reference Range Interpretation Comme [place] HEMOGLOBIN A1c (test code = 68694) 5.3 % Kb [place] LafayetteCOMPREHENSIVE METABOLIC PANEL [ADDED]2022-06-14 00:00:00* Test Item Value Reference Range Interpretation Comme nts GLUCOSE (test code = 2217) 114 MG/DL BUN (test code = 2208) 22 MG/DL CREATININE (test code = 2214) 1.54 MG/DL eGFR (2020 CKD-EPI) (test co de = 34495) 53 ML/MIN/1.73 CALC BUN/CREAT (test code = 2235) 14 RATIO SODIUM (test code = 2231) 139 MEQ/L POTASSIUM (test code = 2228) 4.8 MEQ/L CHLORIDE (test code = 2215) 104 MEQ/L CARBON DIOXIDE (test code = 2206) 24 MEQ/L CALCIUM (test code = 2209) 9.4 MG/DL PROTEIN, TOTAL (test code = 2229) 7.8 G/DL ALBUMIN (test code = 2201) 4.6 G/DL CALC GLOBULIN (test code = 2240) 3.2 G/DL CALC A/G RATIO (test code = 2234) 1.4 RATIO BILIRUBIN, TOTAL (test code = 2207) 0.4 MG/DL ALKALINE PHOSPHATASE (test code = 2204) 113 U/L AST (test code = 2218) 37 U/L ALT (test code = 2219) 39 U/L bK JiménezLIPID PANEL [ADDED]2022-06-14 00:00:00* Test Item Value Reference Range Interpretation Comme nts CHOLESTEROL (test code = 2210) 183 MG/DL TRIGLYCERIDES (test code = 2232) 108 MG/DL HDL CHOLESTEROL (test code = 2220) 70 MG/DL CALC LDL CHOL (test code = 2237) 93 MG/DL RISK RATIO LDL/HDL (test cod e = 2238) 1.33 RATIO Kb JiménezCOMPREHENSIVE METABOLIC PANEL [ADDED]2022-06-14 00:00:00* Test Item Value Reference Range Interpretation Comme nts GLUCOSE (test code = 2217) 114 MG/DL BUN (test code = 2208) 22 MG/DL CREATININE (test code = 2214) 1.54 MG/DL eGFR (2020 CKD-EPI) (test co de = 00581) 53 ML/MIN/1.73 CALC BUN/CREAT (test code = 2235) 14 RATIO SODIUM (test code = 2231) 139 MEQ/L POTASSIUM (test code = 2228) 4.8 MEQ/L CHLORIDE (test code = 2215) 104 MEQ/L CARBON DIOXIDE (test code = 2206) 24 MEQ/L CALCIUM (test code = 2209) 9.4 MG/DL PROTEIN, TOTAL (test code = 2229) 7.8 G/DL ALBUMIN (test code = 2201) 4.6 G/DL CALC GLOBULIN (test code = 2240) 3.2 G/DL CALC A/G RATIO (test code = 2234) 1.4 RATIO BILIRUBIN, TOTAL (test code = 2207) 0.4 MG/DL ALKALINE PHOSPHATASE (test code = 2204) 113 U/L AST (test code = 2218) 37 U/L ALT (test code = 2219) 39 U/L Kb [place] AustinLIPID PANEL [ADDED]2022-06-14 00:00:00* Test Item Value Reference Range Interpretation Comme nts CHOLESTEROL (test code = 2210) 183 MG/DL TRIGLYCERIDES (test code = 2232) 108 MG/DL HDL CHOLESTEROL (test code = 2220) 70 MG/DL CALC LDL CHOL (test code = 2237) 93 MG/DL RISK RATIO LDL/HDL (test cod e = 2238) 1.33 RATIO Kb [place] AustinCOMPREHENSIVE METABOLIC PANEL [ADDED]2022-06-14 00:00:00* Test Item Value Reference Range Interpretation Comme nts GLUCOSE (test code = 2217) 114 MG/DL BUN (test code = 2208) 22 MG/DL CREATININE (test code = 2214) 1.54 MG/DL eGFR (2020 CKD-EPI) (test co de = 41435) 53 ML/MIN/1.73 CALC BUN/CREAT (test code = 2235) 14 RATIO SODIUM (test code = 2231) 139 MEQ/L POTASSIUM (test code = 2228) 4.8 MEQ/L CHLORIDE (test code = 2215) 104 MEQ/L CARBON DIOXIDE (test code = 2206) 24 MEQ/L CALCIUM (test code = 2209) 9.4 MG/DL PROTEIN, TOTAL (test code = 2229) 7.8 G/DL ALBUMIN (test code = 2201) 4.6 G/DL CALC GLOBULIN (test code = 2240) 3.2 G/DL CALC A/G RATIO (test code = 2234) 1.4 RATIO BILIRUBIN, TOTAL (test code = 2207) 0.4 MG/DL ALKALINE PHOSPHATASE (test code = 2204) 113 U/L AST (test code = 2218) 37 U/L ALT (test code = 2219) 39 U/L Kb [place] AustinLIPID PANEL [ADDED]2022-06-14 00:00:00* Test Item Value Reference Range Interpretation Comme nts CHOLESTEROL (test code = 2210) 183 MG/DL TRIGLYCERIDES (test code = 2232) 108 MG/DL HDL CHOLESTEROL (test code = 2220) 70 MG/DL CALC LDL CHOL (test code = 2237) 93 MG/DL RISK RATIO LDL/HDL (test cod e = 2238) 1.33 RATIO Kb JiménezLIPID [id number] 00:00:00* Test Item Value Reference Range Interpretation Comme nts CHOLESTEROL (test code = 2210) 156 MG/DL TRIGLYCERIDES (test code = 2232) 73 MG/DL HDL CHOLESTEROL (test code = 2220) 44 MG/DL CALC LDL CHOL (test code = 2237) 96 MG/DL RISK RATIO LDL/HDL (test cod e = 2238) 2.18 RATIO COMPREHENSIVE METABOLIC [id number] 00:00:00* Test Item Value Reference Range Interpretation Comme nts GLUCOSE (test code = 2217) 117 MG/DL BUN (test code = 2208) 22 MG/DL CREATININE (test code = 2214) 1.16 MG/DL eGFR AMER. (test cod e = 24253) 83 ML/MIN/1.73 eGFR NON- AMER. (test code = 55929) 71 ML/MIN/1.73 CALC BUN/CREAT (test code = 2235) 19 RATIO SODIUM (test code = 2231) 138 MEQ/L POTASSIUM (test code = 2228) 4.8 MEQ/L CHLORIDE (test code = 2215) 101 MEQ/L CARBON DIOXIDE (test code = 2206) 22 MEQ/L CALCIUM (test code = 2209) 9.0 MG/DL PROTEIN, TOTAL (test code = 2229) 7.8 G/DL ALBUMIN (test code = 2201) 4.4 G/DL CALC GLOBULIN (test code = 2240) 3.4 G/DL CALC A/G RATIO (test code = 2234) 1.3 RATIO BILIRUBIN, TOTAL (test code = 2207) 0.5 MG/DL ALKALINE PHOSPHATASE (test code = 2204) 106 U/L AST (test code = 2218) 50 U/L ALT (test code = 2219) 56 U/L Kb JiménezLIPID [id number] 00:00:00* Test Item Value Reference Range Interpretation Comme nts CHOLESTEROL (test code = 2210) 156 MG/DL TRIGLYCERIDES (test code = 2232) 73 MG/DL HDL CHOLESTEROL (test code = 2220) 44 MG/DL CALC LDL CHOL (test code = 2237) 96 MG/DL RISK RATIO LDL/HDL (test cod e = 2238) 2.18 RATIO Kb JiménezBLOOD GROUP (ABO) AND RH [id number] 00:00:00* Test Item Value Reference Range Interpretation Comme nts BLOOD TYPE AND RH (test code = 3901) A POSITIVE Kb JiménezCOMPREHENSIVE METABOLIC [id number] 00:00:00* Test Item Value Reference Range Interpretation Comme nts GLUCOSE (test code = 2217) 117 MG/DL BUN (test code = 2208) 22 MG/DL CREATININE (test code = 2214) 1.16 MG/DL eGFR AMER. (test cod e = 94897) 83 ML/MIN/1.73 eGFR NON- AMER. (test code = 66194) 71 ML/MIN/1.73 CALC BUN/CREAT (test code = 2235) 19 RATIO SODIUM (test code = 2231) 138 MEQ/L POTASSIUM (test code = 2228) 4.8 MEQ/L CHLORIDE (test code = 2215) 101 MEQ/L CARBON DIOXIDE (test code = 2206) 22 MEQ/L CALCIUM (test code = 2209) 9.0 MG/DL PROTEIN, TOTAL (test code = 2229) 7.8 G/DL ALBUMIN (test code = 2201) 4.4 G/DL CALC GLOBULIN (test code = 2240) 3.4 G/DL CALC A/G RATIO (test code = 2234) 1.3 RATIO BILIRUBIN, TOTAL (test code = 2207) 0.5 MG/DL ALKALINE PHOSPHATASE (test code = 2204) 106 U/L AST (test code = 2218) 50 U/L ALT (test code = 2219) 56 U/L Kb JiménezLIPID [id number] 00:00:00* Test Item Value Reference Range Interpretation Comme nts CHOLESTEROL (test code = 2210) 156 MG/DL TRIGLYCERIDES (test code = 2232) 73 MG/DL HDL CHOLESTEROL (test code = 2220) 44 MG/DL CALC LDL CHOL (test code = 2237) 96 MG/DL RISK RATIO LDL/HDL (test cod e = 2238) 2.18 RATIO Kb JiménezBLOOD GROUP (ABO) AND RH [id number] 00:00:00* Test Item Value Reference Range Interpretation Comme nts BLOOD TYPE AND RH (test code = 3901) A POSITIVE BLOOD GROUP (ABO) AND RH [id number] 00:00:00* Test Item Value Reference Range Interpretation Comme nts BLOOD TYPE AND RH (test code = 3901) A POSITIVE Kb F AustinCOMPREHENSIVE METABOLIC [id number] 00:00:00* Test Item Value Reference Range Interpretation Comme nts GLUCOSE (test code = 2217) 117 MG/DL BUN (test code = 2208) 22 MG/DL CREATININE (test code = 2214) 1.16 MG/DL eGFR AMER. (test cod e = 05572) 83 ML/MIN/1.73 eGFR NON- AMER. (test code = 37998) 71 ML/MIN/1.73 CALC BUN/CREAT (test code = 2235) 19 RATIO SODIUM (test code = 2231) 138 MEQ/L POTASSIUM (test code = 2228) 4.8 MEQ/L CHLORIDE (test code = 2215) 101 MEQ/L CARBON DIOXIDE (test code = 2206) 22 MEQ/L CALCIUM (test code = 2209) 9.0 MG/DL PROTEIN, TOTAL (test code = 2229) 7.8 G/DL ALBUMIN (test code = 2201) 4.4 G/DL CALC GLOBULIN (test code = 2240) 3.4 G/DL CALC A/G RATIO (test code = 2234) 1.3 RATIO BILIRUBIN, TOTAL (test code = 2207) 0.5 MG/DL ALKALINE PHOSPHATASE (test code = 2204) 106 U/L AST (test code = 2218) 50 U/L ALT (test code = 2219) 56 U/L LIPID [id number] 00:00:00* Test Item Value Reference Range Interpretation Comme nts CHOLESTEROL (test code = 2210) 156 MG/DL TRIGLYCERIDES (test code = 2232) 73 MG/DL HDL CHOLESTEROL (test code = 2220) 44 MG/DL CALC LDL CHOL (test code = 2237) 96 MG/DL RISK RATIO LDL/HDL (test cod e = 2238) 2.18 RATIO COMPREHENSIVE METABOLIC [id number] 00:00:00* Test Item Value Reference Range Interpretation Comme nts GLUCOSE (test code = 2217) 117 MG/DL BUN (test code = 2208) 22 MG/DL CREATININE (test code = 2214) 1.16 MG/DL eGFR AMER. (test cod e = 44576) 83 ML/MIN/1.73 eGFR NON- AMER. (test code = 43015) 71 ML/MIN/1.73 CALC BUN/CREAT (test code = 2235) 19 RATIO SODIUM (test code = 2231) 138 MEQ/L POTASSIUM (test code = 2228) 4.8 MEQ/L CHLORIDE (test code = 2215) 101 MEQ/L CARBON DIOXIDE (test code = 2206) 22 MEQ/L CALCIUM (test code = 2209) 9.0 MG/DL PROTEIN, TOTAL (test code = 2229) 7.8 G/DL ALBUMIN (test code = 2201) 4.4 G/DL CALC GLOBULIN (test code = 2240) 3.4 G/DL CALC A/G RATIO (test code = 2234) 1.3 RATIO BILIRUBIN, TOTAL (test code = 2207) 0.5 MG/DL ALKALINE PHOSPHATASE (test code = 2204) 106 U/L AST (test code = 2218) 50 U/L ALT (test code = 2219) 56 U/L Kb [place] AustinLIPID [id number] 00:00:00* Test Item Value Reference Range Interpretation Comme nts CHOLESTEROL (test code = 2210) 156 MG/DL TRIGLYCERIDES (test code = 2232) 73 MG/DL HDL CHOLESTEROL (test code = 2220) 44 MG/DL CALC LDL CHOL (test code = 2237) 96 MG/DL RISK RATIO LDL/HDL (test cod e = 2238) 2.18 RATIO Kb Karo TinoBLOOD GROUP (ABO) AND RH [id number] 00:00:00* Test Item Value Reference Range Interpretation Comme nts BLOOD TYPE AND RH (test code = 3901) A POSITIVE BLOOD GROUP (ABO) AND RH [id number] 00:00:00* Test Item Value Reference Range Interpretation Comme nts BLOOD TYPE AND RH (test code = 3901) A POSITIVE Kb F TinoCOMPREHENSIVE METABOLIC [id number] 00:00:00* Test Item Value Reference Range Interpretation Comme nts GLUCOSE (test code = 2217) 117 MG/DL BUN (test code = 2208) 22 MG/DL CREATININE (test code = 2214) 1.16 MG/DL eGFR AMER. (test cod e = 39701) 83 ML/MIN/1.73 eGFR NON- AMER. (test code = 45967) 71 ML/MIN/1.73 CALC BUN/CREAT (test code = 2235) 19 RATIO SODIUM (test code = 2231) 138 MEQ/L POTASSIUM (test code = 2228) 4.8 MEQ/L CHLORIDE (test code = 2215) 101 MEQ/L CARBON DIOXIDE (test code = 2206) 22 MEQ/L CALCIUM (test code = 2209) 9.0 MG/DL PROTEIN, TOTAL (test code = 2229) 7.8 G/DL ALBUMIN (test code = 2201) 4.4 G/DL CALC GLOBULIN (test code = 2240) 3.4 G/DL CALC A/G RATIO (test code = 2234) 1.3 RATIO BILIRUBIN, TOTAL (test code = 2207) 0.5 MG/DL ALKALINE PHOSPHATASE (test code = 2204) 106 U/L AST (test code = 2218) 50 U/L ALT (test code = 2219) 56 U/L COMPREHENSIVE METABOLIC [id number] 00:00:00* Test Item Value Reference Range Interpretation Comme nts GLUCOSE (test code = 2217) 97 MG/DL BUN (test code = 2208) 13 MG/DL CREATININE (test code = 2214) 1.08 MG/DL eGFR AMER. (test cod e = 66939) 91 ML/MIN/1.73 eGFR NON- AMER. (test code = 77059) 78 ML/MIN/1.73 CALC BUN/CREAT (test code = 2235) 12 RATIO SODIUM (test code = 2231) 138 MEQ/L POTASSIUM (test code = 2228) 4.5 MEQ/L CHLORIDE (test code = 2215) 103 MEQ/L CARBON DIOXIDE (test code = 2206) 25 MEQ/L CALCIUM (test code = 2209) 9.4 MG/DL PROTEIN, TOTAL (test code = 2229) 7.8 G/DL ALBUMIN (test code = 2201) 4.3 G/DL CALC GLOBULIN (test code = 2240) 3.5 G/DL CALC A/G RATIO (test code = 2234) 1.2 RATIO BILIRUBIN, TOTAL (test code = 2207) 0.7 MG/DL ALKALINE PHOSPHATASE (test code = 2204) 98 U/L AST (test code = 2218) 45 U/L ALT (test code = 2219) 57 U/L Kb JiménezLIPID [id number] 00:00:00* Test Item Value Reference Range Interpretation Comme nts CHOLESTEROL (test code = 2210) 177 MG/DL TRIGLYCERIDES (test code = 2232) 120 MG/DL HDL CHOLESTEROL (test code = 2220) 40 MG/DL CALC LDL CHOL (test code = 2237) 114 MG/DL RISK RATIO LDL/HDL (test cod e = 2238) 2.85 RATIO Kb JiménezCOMPREHENSIVE METABOLIC [id number] 00:00:00* Test Item Value Reference Range Interpretation Comme nts GLUCOSE (test code = 2217) 97 MG/DL BUN (test code = 2208) 13 MG/DL CREATININE (test code = 2214) 1.08 MG/DL eGFR AMER. (test cod e = 46678) 91 ML/MIN/1.73 eGFR NON- AMER. (test code = 36099) 78 ML/MIN/1.73 CALC BUN/CREAT (test code = 2235) 12 RATIO SODIUM (test code = 2231) 138 MEQ/L POTASSIUM (test code = 2228) 4.5 MEQ/L CHLORIDE (test code = 2215) 103 MEQ/L CARBON DIOXIDE (test code = 2206) 25 MEQ/L CALCIUM (test code = 2209) 9.4 MG/DL PROTEIN, TOTAL (test code = 2229) 7.8 G/DL ALBUMIN (test code = 2201) 4.3 G/DL CALC GLOBULIN (test code = 2240) 3.5 G/DL CALC A/G RATIO (test code = 2234) 1.2 RATIO BILIRUBIN, TOTAL (test code = 2207) 0.7 MG/DL ALKALINE PHOSPHATASE (test code = 2204) 98 U/L AST (test code = 2218) 45 U/L ALT (test code = 2219) 57 U/L Kb JiménezLIPID [id number] 00:00:00* Test Item Value Reference Range Interpretation Comme nts CHOLESTEROL (test code = 2210) 177 MG/DL TRIGLYCERIDES (test code = 2232) 120 MG/DL HDL CHOLESTEROL (test code = 2220) 40 MG/DL CALC LDL CHOL (test code = 2237) 114 MG/DL RISK RATIO LDL/HDL (test cod e = 2238) 2.85 RATIO Kb JiménezCOMPREHENSIVE METABOLIC [id number] 00:00:00* Test Item Value Reference Range Interpretation Comme nts GLUCOSE (test code = 2217) 97 MG/DL BUN (test code = 2208) 13 MG/DL CREATININE (test code = 2214) 1.08 MG/DL eGFR AMER. (test cod e = 20141) 91 ML/MIN/1.73 eGFR NON- AMER. (test code = 44936) 78 ML/MIN/1.73 CALC BUN/CREAT (test code = 2235) 12 RATIO SODIUM (test code = 2231) 138 MEQ/L POTASSIUM (test code = 2228) 4.5 MEQ/L CHLORIDE (test code = 2215) 103 MEQ/L CARBON DIOXIDE (test code = 2206) 25 MEQ/L CALCIUM (test code = 2209) 9.4 MG/DL PROTEIN, TOTAL (test code = 2229) 7.8 G/DL ALBUMIN (test code = 2201) 4.3 G/DL CALC GLOBULIN (test code = 2240) 3.5 G/DL CALC A/G RATIO (test code = 2234) 1.2 RATIO BILIRUBIN, TOTAL (test code = 2207) 0.7 MG/DL ALKALINE PHOSPHATASE (test code = 2204) 98 U/L AST (test code = 2218) 45 U/L ALT (test code = 2219) 57 U/L COMPREHENSIVE METABOLIC [id number] 00:00:00* Test Item Value Reference Range Interpretation Comme nts GLUCOSE (test code = 2217) 97 MG/DL BUN (test code = 2208) 13 MG/DL CREATININE (test code = 2214) 1.08 MG/DL eGFR AMER. (test cod e = 25237) 91 ML/MIN/1.73 eGFR NON- AMER. (test code = 46596) 78 ML/MIN/1.73 CALC BUN/CREAT (test code = 2235) 12 RATIO SODIUM (test code = 2231) 138 MEQ/L POTASSIUM (test code = 2228) 4.5 MEQ/L CHLORIDE (test code = 2215) 103 MEQ/L CARBON DIOXIDE (test code = 2206) 25 MEQ/L CALCIUM (test code = 2209) 9.4 MG/DL PROTEIN, TOTAL (test code = 2229) 7.8 G/DL ALBUMIN (test code = 2201) 4.3 G/DL CALC GLOBULIN (test code = 2240) 3.5 G/DL CALC A/G RATIO (test code = 2234) 1.2 RATIO BILIRUBIN, TOTAL (test code = 2207) 0.7 MG/DL ALKALINE PHOSPHATASE (test code = 2204) 98 U/L AST (test code = 2218) 45 U/L ALT (test code = 2219) 57 U/L Kb JiménezLIPID [id number] 00:00:00* Test Item Value Reference Range Interpretation Comme nts CHOLESTEROL (test code = 2210) 177 MG/DL TRIGLYCERIDES (test code = 2232) 120 MG/DL HDL CHOLESTEROL (test code = 2220) 40 MG/DL CALC LDL CHOL (test code = 2237) 114 MG/DL RISK RATIO LDL/HDL (test cod e = 2238) 2.85 RATIO LIPID [id number] 00:00:00* Test Item Value Reference Range Interpretation Comme nts CHOLESTEROL (test code = 2210) 177 MG/DL TRIGLYCERIDES (test code = 2232) 120 MG/DL HDL CHOLESTEROL (test code = 2220) 40 MG/DL CALC LDL CHOL (test code = 2237) 114 MG/DL RISK RATIO LDL/HDL (test cod e = 2238) 2.85 RATIO Kb JiménezCOMPREHENSIVE METABOLIC [id number] 00:00:00* Test Item Value Reference Range Interpretation Comme nts GLUCOSE (test code = 2217) 97 MG/DL BUN (test code = 2208) 13 MG/DL CREATININE (test code = 2214) 1.08 MG/DL eGFR AMER. (test cod e = 18517) 91 ML/MIN/1.73 eGFR NON- AMER. (test code = 37943) 78 ML/MIN/1.73 CALC BUN/CREAT (test code = 2235) 12 RATIO SODIUM (test code = 2231) 138 MEQ/L POTASSIUM (test code = 2228) 4.5 MEQ/L CHLORIDE (test code = 2215) 103 MEQ/L CARBON DIOXIDE (test code = 2206) 25 MEQ/L CALCIUM (test code = 2209) 9.4 MG/DL PROTEIN, TOTAL (test code = 2229) 7.8 G/DL ALBUMIN (test code = 2201) 4.3 G/DL CALC GLOBULIN (test code = 2240) 3.5 G/DL CALC A/G RATIO (test code = 2234) 1.2 RATIO BILIRUBIN, TOTAL (test code = 2207) 0.7 MG/DL ALKALINE PHOSPHATASE (test code = 2204) 98 U/L AST (test code = 2218) 45 U/L ALT (test code = 2219) 57 U/L LIPID [id number] 00:00:00* Test Item Value Reference Range Interpretation Comme nts CHOLESTEROL (test code = 2210) 177 MG/DL TRIGLYCERIDES (test code = 2232) 120 MG/DL HDL CHOLESTEROL (test code = 2220) 40 MG/DL CALC LDL CHOL (test code = 2237) 114 MG/DL RISK RATIO LDL/HDL (test cod e = 2238) 2.85 RATIO LIPID [id number] 00:00:00* Test Item Value Reference Range Interpretation Comme nts CHOLESTEROL (test code = 2210) 179 MG/DL TRIGLYCERIDES (test code = 2232) 78 MG/DL HDL CHOLESTEROL (test code = 2220) 55 MG/DL CALC LDL CHOL (test code = 2237) 108 MG/DL RISK RATIO LDL/HDL (test cod e = 2238) 1.97 RATIO HEMOGLOBIN [id number] 00:00:00* Test Item Value Reference Range Interpretation Comme nts HEMOGLOBIN A1c (test code = 20458) 5.3 % COMPREHENSIVE METABOLIC [id number] 00:00:00* Test Item Value Reference Range Interpretation Comme nts GLUCOSE (test code = 2217) 95 MG/DL BUN (test code = 2208) 15 MG/DL CREATININE (test code = 2214) 0.98 MG/DL eGFR AMER. (test cod e = 20128) 102 ML/MIN/1.73 eGFR NON- AMER. (test code = 99109) 88 ML/MIN/1.73 CALC BUN/CREAT (test code = 2235) 15 RATIO SODIUM (test code = 2231) 141 MEQ/L POTASSIUM (test code = 2228) 4.7 MEQ/L CHLORIDE (test code = 2215) 103 MEQ/L CARBON DIOXIDE (test code = 2206) 27 MEQ/L CALCIUM (test code = 2209) 9.7 MG/DL PROTEIN, TOTAL (test code = 2229) 7.8 G/DL ALBUMIN (test code = 2201) 4.6 G/DL CALC GLOBULIN (test code = 2240) 3.2 G/DL CALC A/G RATIO (test code = 2234) 1.4 RATIO BILIRUBIN, TOTAL (test code = 2207) 0.6 MG/DL ALKALINE PHOSPHATASE (test code = 2204) 107 U/L AST (test code = 2218) 42 U/L ALT (test code = 2219) 59 U/L PSA, [id number] 00:00:00* Test Item Value Reference Range Interpretation Comme nts PSA, TOTAL (test code = 2606) 1.25 NG/ML LIPID [id number] 00:00:00* Test Item Value Reference Range Interpretation Comme nts CHOLESTEROL (test code = 2210) 179 MG/DL TRIGLYCERIDES (test code = 2232) 78 MG/DL HDL CHOLESTEROL (test code = 2220) 55 MG/DL CALC LDL CHOL (test code = 2237) 108 MG/DL RISK RATIO LDL/HDL (test cod e = 2238) 1.97 RATIO Kb JiménezHEMOGLOBIN [id number] 00:00:00* Test Item Value Reference Range Interpretation Comme nts HEMOGLOBIN A1c (test code = 62241) 5.3 % Kb JiménezCOMPREHENSIVE METABOLIC [id number] 00:00:00* Test Item Value Reference Range Interpretation Comme nts GLUCOSE (test code = 2217) 95 MG/DL BUN (test code = 2208) 15 MG/DL CREATININE (test code = 2214) 0.98 MG/DL eGFR AMER. (test cod e = 70101) 102 ML/MIN/1.73 eGFR NON- AMER. (test code = 80252) 88 ML/MIN/1.73 CALC BUN/CREAT (test code = 2235) 15 RATIO SODIUM (test code = 2231) 141 MEQ/L POTASSIUM (test code = 2228) 4.7 MEQ/L CHLORIDE (test code = 2215) 103 MEQ/L CARBON DIOXIDE (test code = 2206) 27 MEQ/L CALCIUM (test code = 2209) 9.7 MG/DL PROTEIN, TOTAL (test code = 2229) 7.8 G/DL ALBUMIN (test code = 2201) 4.6 G/DL CALC GLOBULIN (test code = 2240) 3.2 G/DL CALC A/G RATIO (test code = 2234) 1.4 RATIO BILIRUBIN, TOTAL (test code = 2207) 0.6 MG/DL ALKALINE PHOSPHATASE (test code = 2204) 107 U/L AST (test code = 2218) 42 U/L ALT (test code = 2219) 59 U/L Kb JiménezPSA, [id number] 00:00:00* Test Item Value Reference Range Interpretation Comme nts PSA, TOTAL (test code = 2606) 1.25 NG/ML Kb JiménezCBC W/AUTO [id number] 00:00:00* Test Item Value Reference Range Interpretation Comme nts WBC (test code = 1001) 7.1 K/UL RBC (test code = 1002) 5.18 M/UL HEMOGLOBIN (test code = 1003) 16.9 G/DL HEMATOCRIT (test code = 1004) 47.9 % MCV (test code = 1005) 92.5 fL MCH (test code = 1006) 32.6 PG MCHC (test code = 1007) 35.3 G/DL RDW (test code = 1038) 12.4 % NEUTROPHILS (test code = 1008) 64.7 % LYMPHOCYTES (test code = 1010) 21.4 % MONOCYTES (test code = 1011) 11.1 % EOSINOPHILS (test code = 1012) 2.5 % BASOPHILS (test code = 1013) 0.3 % PLATELET COUNT (test code = 1015) 235 K/UL Kb JiménezLIPID [id number] 00:00:00* Test Item Value Reference Range Interpretation Comme nts CHOLESTEROL (test code = 2210) 179 MG/DL TRIGLYCERIDES (test code = 2232) 78 MG/DL HDL CHOLESTEROL (test code = 2220) 55 MG/DL CALC LDL CHOL (test code = 2237) 108 MG/DL RISK RATIO LDL/HDL (test cod e = 2238) 1.97 RATIO Kb JiménezHEMOGLOBIN [id number] 00:00:00* Test Item Value Reference Range Interpretation Comme nts HEMOGLOBIN A1c (test code = 15909) 5.3 % Kb JiménezCOMPREHENSIVE METABOLIC [id number] 00:00:00* Test Item Value Reference Range Interpretation Comme nts GLUCOSE (test code = 2217) 95 MG/DL BUN (test code = 2208) 15 MG/DL CREATININE (test code = 2214) 0.98 MG/DL eGFR AMER. (test cod e = 74791) 102 ML/MIN/1.73 eGFR NON- AMER. (test code = 98099) 88 ML/MIN/1.73 CALC BUN/CREAT (test code = 2235) 15 RATIO SODIUM (test code = 2231) 141 MEQ/L POTASSIUM (test code = 2228) 4.7 MEQ/L CHLORIDE (test code = 2215) 103 MEQ/L CARBON DIOXIDE (test code = 2206) 27 MEQ/L CALCIUM (test code = 2209) 9.7 MG/DL PROTEIN, TOTAL (test code = 2229) 7.8 G/DL ALBUMIN (test code = 2201) 4.6 G/DL CALC GLOBULIN (test code = 2240) 3.2 G/DL CALC A/G RATIO (test code = 2234) 1.4 RATIO BILIRUBIN, TOTAL (test code = 2207) 0.6 MG/DL ALKALINE PHOSPHATASE (test code = 2204) 107 U/L AST (test code = 2218) 42 U/L ALT (test code = 2219) 59 U/L Kb JiménezPSA, [id number] 00:00:00* Test Item Value Reference Range Interpretation Comme nts PSA, TOTAL (test code = 2606) 1.25 NG/ML Kb JiménezCBC W/AUTO [id number] 00:00:00* Test Item Value Reference Range Interpretation Comme nts WBC (test code = 1001) 7.1 K/UL RBC (test code = 1002) 5.18 M/UL HEMOGLOBIN (test code = 1003) 16.9 G/DL HEMATOCRIT (test code = 1004) 47.9 % MCV (test code = 1005) 92.5 fL MCH (test code = 1006) 32.6 PG MCHC (test code = 1007) 35.3 G/DL RDW (test code = 1038) 12.4 % NEUTROPHILS (test code = 1008) 64.7 % LYMPHOCYTES (test code = 1010) 21.4 % MONOCYTES (test code = 1011) 11.1 % EOSINOPHILS (test code = 1012) 2.5 % BASOPHILS (test code = 1013) 0.3 % PLATELET COUNT (test code = 1015) 235 K/UL CBC W/AUTO [id number] 00:00:00* Test Item Value Reference Range Interpretation Comme nts WBC (test code = 1001) 7.1 K/UL RBC (test code = 1002) 5.18 M/UL HEMOGLOBIN (test code = 1003) 16.9 G/DL HEMATOCRIT (test code = 1004) 47.9 % MCV (test code = 1005) 92.5 fL MCH (test code = 1006) 32.6 PG MCHC (test code = 1007) 35.3 G/DL RDW (test code = 1038) 12.4 % NEUTROPHILS (test code = 1008) 64.7 % LYMPHOCYTES (test code = 1010) 21.4 % MONOCYTES (test code = 1011) 11.1 % EOSINOPHILS (test code = 1012) 2.5 % BASOPHILS (test code = 1013) 0.3 % PLATELET COUNT (test code = 1015) 235 K/UL Kb [place] AustinLIPID [id number] 00:00:00* Test Item Value Reference Range Interpretation Comme nts CHOLESTEROL (test code = 2210) 179 MG/DL TRIGLYCERIDES (test code = 2232) 78 MG/DL HDL CHOLESTEROL (test code = 2220) 55 MG/DL CALC LDL CHOL (test code = 2237) 108 MG/DL RISK RATIO LDL/HDL (test cod e = 2238) 1.97 RATIO HEMOGLOBIN [id number] 00:00:00* Test Item Value Reference Range Interpretation Comme nts HEMOGLOBIN A1c (test code = 31684) 5.3 % LIPID [id number] 00:00:00* Test Item Value Reference Range Interpretation Comme nts CHOLESTEROL (test code = 2210) 179 MG/DL TRIGLYCERIDES (test code = 2232) 78 MG/DL HDL CHOLESTEROL (test code = 2220) 55 MG/DL CALC LDL CHOL (test code = 2237) 108 MG/DL RISK RATIO LDL/HDL (test cod e = 2238) 1.97 RATIO Kb F TinoCOMPREHENSIVE METABOLIC [id number] 00:00:00* Test Item Value Reference Range Interpretation Comme nts GLUCOSE (test code = 2217) 95 MG/DL BUN (test code = 2208) 15 MG/DL CREATININE (test code = 2214) 0.98 MG/DL eGFR AMER. (test cod e = 52494) 102 ML/MIN/1.73 eGFR NON- AMER. (test code = 59599) 88 ML/MIN/1.73 CALC BUN/CREAT (test code = 2235) 15 RATIO SODIUM (test code = 2231) 141 MEQ/L POTASSIUM (test code = 2228) 4.7 MEQ/L CHLORIDE (test code = 2215) 103 MEQ/L CARBON DIOXIDE (test code = 2206) 27 MEQ/L CALCIUM (test code = 2209) 9.7 MG/DL PROTEIN, TOTAL (test code = 2229) 7.8 G/DL ALBUMIN (test code = 2201) 4.6 G/DL CALC GLOBULIN (test code = 2240) 3.2 G/DL CALC A/G RATIO (test code = 2234) 1.4 RATIO BILIRUBIN, TOTAL (test code = 2207) 0.6 MG/DL ALKALINE PHOSPHATASE (test code = 2204) 107 U/L AST (test code = 2218) 42 U/L ALT (test code = 2219) 59 U/L PSA, [id number] 00:00:00* Test Item Value Reference Range Interpretation Comme nts PSA, TOTAL (test code = 2606) 1.25 NG/ML CBC W/AUTO [id number] 00:00:00* Test Item Value Reference Range Interpretation Comme nts WBC (test code = 1001) 7.1 K/UL RBC (test code = 1002) 5.18 M/UL HEMOGLOBIN (test code = 1003) 16.9 G/DL HEMATOCRIT (test code = 1004) 47.9 % MCV (test code = 1005) 92.5 fL MCH (test code = 1006) 32.6 PG MCHC (test code = 1007) 35.3 G/DL RDW (test code = 1038) 12.4 % NEUTROPHILS (test code = 1008) 64.7 % LYMPHOCYTES (test code = 1010) 21.4 % MONOCYTES (test code = 1011) 11.1 % EOSINOPHILS (test code = 1012) 2.5 % BASOPHILS (test code = 1013) 0.3 % PLATELET COUNT (test code = 1015) 235 K/UL HEMOGLOBIN [id number] 00:00:00* Test Item Value Reference Range Interpretation Comme nts HEMOGLOBIN A1c (test code = 54314) 5.3 % Kb JiménezCOMPREHENSIVE METABOLIC [id number] 00:00:00* Test Item Value Reference Range Interpretation Comme nts GLUCOSE (test code = 2217) 95 MG/DL BUN (test code = 2208) 15 MG/DL CREATININE (test code = 2214) 0.98 MG/DL eGFR AMER. (test cod e = 73487) 102 ML/MIN/1.73 eGFR NON- AMER. (test code = 20725) 88 ML/MIN/1.73 CALC BUN/CREAT (test code = 2235) 15 RATIO SODIUM (test code = 2231) 141 MEQ/L POTASSIUM (test code = 2228) 4.7 MEQ/L CHLORIDE (test code = 2215) 103 MEQ/L CARBON DIOXIDE (test code = 2206) 27 MEQ/L CALCIUM (test code = 2209) 9.7 MG/DL PROTEIN, TOTAL (test code = 2229) 7.8 G/DL ALBUMIN (test code = 2201) 4.6 G/DL CALC GLOBULIN (test code = 2240) 3.2 G/DL CALC A/G RATIO (test code = 2234) 1.4 RATIO BILIRUBIN, TOTAL (test code = 2207) 0.6 MG/DL ALKALINE PHOSPHATASE (test code = 2204) 107 U/L AST (test code = 2218) 42 U/L ALT (test code = 2219) 59 U/L Kb JiménezPSA, [id number] 00:00:00* Test Item Value Reference Range Interpretation Comme nts PSA, TOTAL (test code = 2606) 1.25 NG/ML Kb JiménezCBC W/AUTO [id number] 00:00:00* Test Item Value Reference Range Interpretation Comme nts WBC (test code = 1001) 7.1 K/UL RBC (test code = 1002) 5.18 M/UL HEMOGLOBIN (test code = 1003) 16.9 G/DL HEMATOCRIT (test code = 1004) 47.9 % MCV (test code = 1005) 92.5 fL MCH (test code = 1006) 32.6 PG MCHC (test code = 1007) 35.3 G/DL RDW (test code = 1038) 12.4 % NEUTROPHILS (test code = 1008) 64.7 % LYMPHOCYTES (test code = 1010) 21.4 % MONOCYTES (test code = 1011) 11.1 % EOSINOPHILS (test code = 1012) 2.5 % BASOPHILS (test code = 1013) 0.3 % PLATELET COUNT (test code = 1015) 235 K/UL Kb Jiménez Notes Date/Time Note Provider Source Kb Sen [facility]2024-12-04 00:00:00 Kb Sen [facility]2024-08-08 00:00:00 Kb Karena [facility]
[2025-04-19 08:27] LABS: Absolute Lymphocytes (CBC) 1.1 K/uL (0.7-4.9); Hematocrit 24.2 % (39.6-49.0); Hemoglobin 7.6 g/dL (13.6-17.9); MCH 20.7 pg (27.0-35.0); MCHC 31.4 g/dL (32.0-36.0); MCV 65.9 fL (80-100); MPV 6.6 fL (7.6-11.3); Nucleated RBC Absolute Count 0.0 (0-0); Nucleated Red Blood Cells % 0.0 % (0-0); RBC Red Blood Cell Count 3.67 M/uL (4.33-5.43); White Blood Count 6.30 thou/uL (4.3-10.9)
--- NOTE | 2025-04-19 08:32 | RAD REPORT ---
EXAMINATION: Head Brain Wo Cont CLINICAL INDICATION: Male, 59 years old.SEIZURE TECHNIQUE: Axial CT images from the skull base to the vertex without intravenous contrast. Coronal an d sagittal reformatted images were created from the data set. One or more of the following dose reduction techniques were used: Automated exposure control, adjustment of the mA and/or kV according to patient size, and/or iterative reconstruction. Unless otherwise specified, incidental findings do not require dedicated imaging follow-up. [id number]. COMPARISON: 02/07/2020 FINDINGS: INTRACRANIAL: No acute intracranial hemorrhage. No acute large vascular territory infarct. Similar ve ntriculomegaly which is slightly out of proportion to the degree of cerebral atrophy.. No mass effect or midline shift. Moderate chronic small vessel ischemic changes.Mild cerebral atrophy. VASCULATURE: No visualized abnormalities in the arteries or dural venous sinuses. SCALP/SKULL: No calvarial fracture identified. No acute soft tissue abnormality. SINUSES: The visualized paranasal sinuses are mostly clear. No significant mastoid fluid. IMPRESSION: No acute intracranial abnormality. Ventriculomegaly which is unchanged but out of proportion to the d egree of cerebral atrophy. Normal pressure hydrocephalus is a consideration in the appropriate clinical setting.
[2025-04-19 08:37] LABS: ALT/SGPT 22 U/L (16-61); AST/SGOT 18 U/L (15-37); Albumin 3.2 g/dL (3.4-5.0); Albumin/Globulin Ratio 0.7 (1.1-1.8); Alkaline Phosphatase 108 U/L (45-117); Anion Gap 12.7 mEq/L (5.0-15.0); BUN Blood Urea Nitrogen 15 mg/dL (7-18); Globulin 4.7 g/dL (2.3-3.5); Glucose Level 116 mg/dL (74-106); Magnesium 2.2 mg/dL (1.6-2.4); Potassium 3.7 mEq/L (3.5-5.1); Troponin High Sensitivity 4.0 pg/mL (<58.9)
[2025-04-19 08:40] LABS: PT Prothrombin Time 12.1 SECONDS (10-13.0); Protime INR 1.07
--- NOTE | 2025-04-19 08:43 | RAD REPORT ---
EXAM: Chest Single View HISTORY: 59 years Male seizure COMPARISON: No prior exams FINDINGS: LUNGS/PLEURA: The lungs are clear. No pleural effusions or pneumothorax. No pulmonary edema. CARDIAC/MEDIASTINUM: The cardiac silhouette is within normal limits. UPPER ABDOMEN: No significant abnormality. BONES: No acute abnormality. LINES/TUBES/OTHER: N/A IMPRESSION: No evidence of acute cardiopulmonary disease.
[2025-04-19 08:46] LABS: Bilirubin Indirect, Calculated 0.1 mg/dL (0.2-0.8)
[2025-04-19 09:49] LABS: White Blood Cell Scan OK (OK)
[2025-04-19 09:50] LABS: Anisocytosis SLIGHT; Blood Morphology Comment NOTED (NOT SEEN); Microcytosis 1+; Poikilocytosis SLIGHT
[2025-04-19 09:52] LABS: Ovalocytes SLIGHT
--- NOTE | 2025-04-19 09:55 | ER ---
Nurse's Notes [facility] Name: Bao Remy Jr Age: 59 yrs Sex: Male : 1965 Arrival Date: 04/19/2025 Time: 07:50 Bed 8 Private MD: Diagnosis: Other seizures;Anemia, unspecified;Hypo-osmolality and hyponatremia;Renal insufficiency Presentation: 04/19 07:52 Chief complaint: EMS states: WITNESSED SZ WITH INCONTINENCE. POST-ICTAL ON SCENE, bp BASELINE ON ARRIVAL. Coronavirus screen: At this time, the client does not indicate any symptoms associated with coronavirus-19. Ebola Screen: No symptoms or risks identified at this time. Initial Sepsis Screen: Does the patient meet any 2 criteria? No. Patient's initial sepsis screen is negative. Does the patient have a suspected source of infection? No. Patient's initial sepsis screen is negative. Risk Assessment: Do you want to hurt yourself or someone else? Patient reports no desire to harm self or others. Onset of symptoms is unknown. 07:52 Method Of Arrival: EMS: [facility] bp 07:52 Acuity: BRITTANY 3 bp Triage Assessment: 07:53 General: Appears in no apparent distress. Behavior is calm, cooperative, appropriate bp for age. Pain: Denies pain. EENT: No deficits noted. Neuro: Level of Consciousness is awake, alert, obeys commands, Oriented to Appropriate for age Seizure activity reported prior to arrival. Cardiovascular: Rhythm is sinus rhythm. Respiratory: No deficits noted. GI: No signs and/or symptoms were reported involving the gastrointestinal system. : No signs and/or symptoms were reported regarding the genitourinary system. Derm: No deficits noted. Musculoskeletal: No deficits noted. Historical: - Allergies: 07:53 No Known Allergies; bp - PMHx: 07:53 Hypertension; bp - Immunization history:: Adult Immunizations up to date. - Infectious Disease History:: Denies. - Social history:: Smoking status: Patient denies any tobacco usage or history of. Screenin:54 [facility] ED Fall Risk Assessment (Adult) History of falling in the last 3 months, bp including since admission No falls in past 3 months (0 pts) Confusion or Disorientation No (0 pts) Intoxicated or Sedated No (0 pts) Impaired Gait No (0 pts) Mobility Assist Device Used No (0 pt) Altered Elimination No (0 pt) Score/Fall Risk Level 0 - 2 = Low Risk Oriented to surroundings. Abuse screen: Denies threats or abuse. Denies injuries from another. Nutritional screening: No deficits noted. Tuberculosis screening: No symptoms or risk factors identified. Assessment: 07:54 General: SEE TRIAGE NOTE. bp 08:30 Reassessment: Patient appears in no apparent distress at this time. Patient and/or db family updated on plan of care and expected duration. Pain level reassessed. Patient is alert, oriented x 3, equal unlabored respirations, skin warm/dry/pink. General: Appears in no apparent distress. comfortable, Behavior is calm, cooperative. Neuro: Level of Consciousness is awake, alert, obeys commands, Oriented to person, place, time, situation. 09:18 Reassessment: Patient appears in no apparent distress at this time. Patient is alert, bp oriented x 3, equal unlabored respirations, skin warm/dry/pink. 10:04 Reassessment: Patient appears in no apparent distress at this time. Patient and/or db family updated on plan of care and expected duration. Pain level reassessed. Patient is alert, oriented x 3, equal unlabored respirations, skin warm/dry/pink. PT CLEANING SELF IN ROOM. Vital Signs: 07:52 BP 102 / 68; Pulse 89; Resp 16; Temp 98; Pulse Ox 99% ; bp 08:18 BP 118 / 74; Pulse 79; Resp 16; Pulse Ox 100% ; db 08:30 BP 109 / 63; Pulse 81; Resp 16; Pulse Ox 100% on R/A; db 09:18 BP 116 / 69; Pulse 77; Resp 16; Pulse Ox 100% ; bp 10:00 BP 119 / 67; Pulse 100; Resp 18; Pulse Ox 100% ; db 11:24 BP 109 / 63; Pulse 80; Resp 15; Pulse Ox 100% ; bp Vitals: 08:18 Cardiac Rhythm Assessment Regular Sinus rhythm. db Akash Coma Score: 07:53 Eye Response: spontaneous(4). Motor Response: obeys commands(6). Verbal Response: bp oriented(5). Total: 15. ED Course: 07:52 Patient arrived in ED. bp 07:53 Triage completed. bp 07:53 Arm band placed on. bp 07:54 Patient has correct armband on for positive identification. bp 07:55 Adalberto Woods, RN is Primary Nurse. bp 07:55 Nader Colon DO is Attending Physician. bp 08:08 Initial lab(s) drawn, by me, sent to lab. Inserted saline lock: 20 gauge in right db antecubital area, using aseptic technique. Blood collected. Flushed with 10 mL NS. 08:16 CT Head Brain wo Cont In Process Unspecified. EDMS 08:30 Patient has correct armband on for positive identification. Bed in low position. Call db light in reach. Side rails up X2. Seizure precautions initiated. Client placed on continuous cardiac and pulse oximetry monitoring. NIBP monitoring applied. cardiac monitor technician on. Pulse ox on. NIBP on. 08:38 XRAY Chest (1 view) In Process Unspecified. EDMS 09:54 Liliana Rock MD is Hospitalizing Provider. ms3 Administered Medications: 10:00 Drug: Keppra IV 1000 mg IV at calculated rate once Route: IV; Rate: calculated rate; bp Site: left antecubital; 10:33 Follow up: Response: No adverse reaction; IV Status: Completed infusion; IV Intake: db 100ml Medication: 07:54 VIS not applicable for this client. bp Intake: 10:33 IV: 100ml; Total: 100ml. db Outcome: 09:54 Decision to Hospitalize by Provider. ms3 11:47 Patient left the ED. bp Signatures: Dispatcher [employer] EDMT Adalberto Woods, RN RN bp Nader Colon DO DO ms3 Oanh Ibarra RN RN db
--- NOTE | 2025-04-19 09:55 | EDPHYS ---
Physician Documentation [facility] Name: Bao Remy Jr Age: 59 yrs Sex: Male : 1965 Arrival Date: 04/19/2025 Time: 07:50 Bed 8 Private MD: ED Physician Nader Colon HPI: 04/19 09:10 This 59 yrs old Male presents to ER via EMS with complaints of Seizure. ms3 09:10 59-year-old male with past medical history of hypertension [facility] emergency ms3 [facility] for seizure that occurred while at work. Patient did have incontinence. Patient denies neck pain, headache, nausea, vomiting.. Historical: - Allergies: 07:53 No Known Allergies; bp - PMHx: 07:53 Hypertension; bp - Immunization history:: Adult Immunizations up to date. - Infectious Disease History:: Denies. - Social history:: Smoking status: Patient denies any tobacco usage or history of. ROS: 09:10 Constitutional: Negative for fever, and chills. Cardiovascular: Negative for chest ms3 pain, and palpitations. Respiratory: Negative for shortness of breath, cough, wheezing, and pleuritic chest pain, Abdomen/GI: Negative for abdominal pain, nausea, vomiting, diarrhea, and constipation, MS/Extremity: Negative for injury and deformity, Skin: Negative for injury, rash, and discoloration, Psych: Negative for depression, anxiety, suicide ideation, homicidal ideation, and hallucinations, 09:10 Neuro: Positive for seizure activity, ms3 Exam: 09:10 Constitutional: This is a well developed, well nourished patient who is awake, alert, ms3 and in no acute distress. Cardiovascular: Regular rate and rhythm with a normal S1 and S2. No gallops, murmurs, or rubs. Normal PMI, no JVD. No pulse deficits. Respiratory: Lungs have equal breath sounds bilaterally, clear to auscultation and percussion. No rales, rhonchi or wheezes noted. No increased work of breathing, no retractions or nasal flaring. Abdomen/GI: Soft, non-tender, with normal bowel sounds. No distension or tympany. No guarding or rebound. No evidence of tenderness throughout. Skin: Warm, dry with normal turgor. Normal color with no rashes, no lesions, and no evidence of cellulitis. MS/ Extremity: Pulses equal, no cyanosis. Neurovascular intact. Full, normal range of motion. Neuro: Awake and alert, GCS 15, oriented to person, place, time, and situation. Cranial nerves II-XII grossly intact. Motor strength 5/5 in all extremities. Sensory grossly intact. Cerebellar exam normal. Normal gait. 09:24 ECG was reviewed by the Attending Physician. ms3 Vital Signs: 07:52 BP 102 / 68; Pulse 89; Resp 16; Temp 98; Pulse Ox 99% ; bp 08:18 BP 118 / 74; Pulse 79; Resp 16; Pulse Ox 100% ; db 08:30 BP 109 / 63; Pulse 81; Resp 16; Pulse Ox 100% on R/A; db 09:18 BP 116 / 69; Pulse 77; Resp 16; Pulse Ox 100% ; bp 10:00 BP 119 / 67; Pulse 100; Resp 18; Pulse Ox 100% ; db 11:24 BP 109 / 63; Pulse 80; Resp 15; Pulse Ox 100% ; bp [place] Coma Score: 07:53 Eye Response: spontaneous(4). Motor Response: obeys commands(6). Verbal Response: bp oriented(5). Total: 15. MDM: 07:56 Medical Screening Exam initiated ms3 09:13 Differential diagnosis: cerebral vascular accident, cardiac arrhythmia, seizure. ms3 09:54 Data reviewed: vital signs, nurses notes, lab test result(s), EKG, radiologic studies, ms3 and as a result, I will admit patient. Consideration of Admission/Observation Patient was admitted/placed on observation. Management of patient was discussed with the following: Hospitalist: Estrada on behalf of Dr Rock. I considered the following discharge prescriptions or medication management in the emergency department Medications were administered in the Emergency Department. See MAR. Independent interpretation of the following test(s) in the Emergency Department EKG: See my EKG interpretation above CT Scan: My interpretation is CT head without contrast images reviewed by me does not reveal ICH. Counseling: I had a detailed discussion with the patient and/or guardian regarding the historical points, exam findings, and any diagnostic results supporting the discharge/admit diagnosis, lab results, radiology results, the need for further work-up and treatment in the hospital. ED course: Discussed necessity for admission with patient and his son. Patient understands and agrees with plan peer all questions were answered. Patient denies black or bloody stools. Patient endorses drinking 4 beers per day. Alcohol consumption likely cause of hyponatremia.. 04/19 07:56 Order name: Basic Metabolic Panel; Complete Time: 09:20 ms3 04/19 07:56 Order name: CBC with Diff; Complete Time: 09:53 ms3 04/19 07:56 Order name: LFT's; Complete Time: 09:20 ms3 04/19 07:56 Order name: Magnesium; Complete Time: 09:20 ms3 04/19 07:56 Order name: PT-INR; Complete Time: 09:20 ms3 04/19 07:56 Order name: Troponin HS; Complete Time: 09:20 ms3 04/19 08:35 Order name: CBC Smear Scan; Complete Time: 09:53 EDMS 04/19 10:48 Order name: CBC with Automated Diff EDMS 04/19 10:48 Order name: CBC with Automated Diff EDMS 04/19 10:48 Order name: CBC with Automated Diff EDMS 04/19 10:48 Order name: CBC with Automated Diff EDMS 04/19 10:48 Order name: Comprehensive Metabolic Panel EDMS 04/19 10:48 Order name: Comprehensive Metabolic Panel EDMS 04/19 10:48 Order name: Comprehensive Metabolic Panel EDMS 04/19 10:48 Order name: Comprehensive Metabolic Panel EDMS 04/19 10:48 Order name: Creatine Phosphokinase EDMS 04/19 10:48 Order name: Creatine Phosphokinase EDMS 04/19 10:48 Order name: Creatine Phosphokinase EDMS 04/19 10:49 Order name: Creatine Phosphokinase EDMS 04/19 10:49 Order name: T4 Free EDMS 04/19 10:49 Order name: T4 Free EDMS 04/19 10:49 Order name: Thyroid Stimulating Hormone EDMS 04/19 10:49 Order name: Thyroid Stimulating Hormone EDMS 04/19 10:49 Order name: Type and Screen EDMS 04/19 10:49 Order name: Type and Screen EDMS 04/19 10:49 Order name: Ferritin EDMS 04/19 10:49 Order name: Ferritin EDMS 04/19 10:49 Order name: Iron EDMS 04/19 10:49 Order name: Iron EDMS 04/19 10:49 Order name: Transferrin Sat/Iron Binding EDMS 04/19 10:49 Order name: Transferrin Sat/Iron Binding EDMS 04/19 10:50 Order name: Protime (+INR) EDMS 04/19 10:50 Order name: Protime (+INR) EDMS 04/19 10:50 Order name: Protime (+INR) EDMS 04/19 10:53 Order name: UA W/Microscopic EDMS 04/19 07:56 Order name: XRAY Chest (1 view); Complete Time: 09:20 ms3 04/19 07:56 Order name: CT Head Brain wo Cont; Complete Time: 09:20 ms3 04/19 10:48 Order name: EEG Request EDMS 04/19 07:56 Order name: Seizure Precautions; Complete Time: 08:28 ms3 04/19 07:56 Order name: Cardiac monitoring; Complete Time: 08:21 ms3 04/19 07:56 Order name: EKG - Nurse/Tech; Complete Time: 08:21 ms3 04/19 07:56 Order name: IV Saline Lock; Complete Time: 08:21 ms3 04/19 07:56 Order name: Labs collected and sent; Complete Time: 08:21 ms3 04/19 07:56 Order name: O2 Per Protocol; Complete Time: 08:21 ms3 04/19 07:56 Order name: O2 Sat Monitoring; Complete Time: 08:21 ms3 EC:24 Rate is 78 beats/min. Rhythm is regular. QRS [place] is Normal. MI interval is normal. QRS ms3 interval is normal. Clinical impression: Normal ECG. Interpreted by me. Reviewed by me. Administered Medications: 10:00 Drug: Keppra IV 1000 mg IV at calculated rate once Route: IV; Rate: calculated rate; bp Site: left antecubital; 10:33 Follow up: Response: No adverse reaction; IV Status: Completed infusion; IV Intake: db 100ml Disposition Summary: 04/19/25 09:54 Hospitalization Ordered Notes: Hospitalization Status: Inpatient Admission ms3 Provider: Liliana Rock ms3 Location: Telemetry/MedSurg (Inpatient) ms3 Condition: Stable ms3 Problem: new ms3 Symptoms: are unchanged ms3 Bed/Room Type: Standard ms3 Room Assignment: 229(04/19/25 11:08) bd Diagnosis - Other seizures ms3 - Anemia, unspecified ms3 - Hypo-osmolality and hyponatremia ms3 - Renal insufficiency ms3 Forms: - Medication Reconciliation Form ms3 - SBAR form ms3 - Leadership Thank You Letter ms3 Signatures: Dispatcher [employer] EDMS Chelsy Conner bd Adalberto Woods, RN RN Nader Gray, DO ms3 Oanh Ibarra RN db Corrections: (The following items were deleted from the chart) 07:57 07:57 Head Brain Wo Cont+CT.RAD.BRZ ordered. EDMS EDMS 09:13 09:10 Constitutional: Negative for fever, and chills. Cardiovascular: Negative for ms3 chest pain, and palpitations. Respiratory: Negative for shortness of breath, cough, wheezing, and pleuritic chest pain, Abdomen/GI: Negative for abdominal pain, nausea, vomiting, diarrhea, and constipation, MS/Extremity: Negative for injury and deformity, Skin: Negative for injury, rash, and discoloration, Neuro: Negative for headache, weakness, numbness, tingling. Psych: Negative for depression, anxiety, suicide ideation, homicidal ideation, and hallucinations, ms3 11:08 09:54 ms3 bd
[2025-04-19] MEDS ORDERED: LEVETIRACETAM 500 MG/5 ML VIAL IV ONE (09:57)
[2025-04-19] MEDS ORDERED: NA CHLORIDE 0.9% 100 ML ONE (09:58)
[2025-04-19] MEDS ORDERED: ONDANSETRON 4 MG/2 ML VIAL IV PRN (10:44)
[2025-04-19] MEDS ORDERED: ACETAMINOPHEN 325 MG TABLET PO PRN (10:44)
--- NOTE | 2025-04-19 11:51 | P.HP ---
Certification for Inpatient Patient admitted to: Inpatient With expected LOS: >2 Midnights Patient will require the following post-hospital care: None Practitioner: I am a practitioner with admitting privileges, knowledge of patient current condition, hospital course, and medical plan of care. Services: Services provided to patient in accordance with Admission requirements found in Title 42 Section 412.3 of the Code of Federal Regulations Patient History Date of Service: 04/19/25 Reason for admission: Seizure disorder History of Present Illness: Patient is a 59-year-old male with a past medical history of hypertension and alcohol use disorder who was brought to the ER by EMS after a witnessed generalized tonic-clonic seizure at work. Per patient, he experienced anxiety and weakness prior to the seizure and then lost consciousness. He reports that coworkers saw him seizing and witnessed full-body shaking with fecal incontinence. He denies prior seizure history. He did not bite his tongue during the episode. He was post-ictal and mildly confused when EMS arrived but is presently alert in the ER. Presently, the patient reports fatigue but denies muscle soreness, weakness, or confusion. He denies preceding chest pain, shortness of breath, nausea, or vision changes. He drinks 4 beers per day during the week and 8-10 beers per day on the weekends. He has been consuming alcohol in this manner for the past 30 years. He drank 4 beers last night per usual and reports no change in alcohol usage during the past few days. His father also struggled with alcoholism and per patient, either of either stomach or liver cancer. He also smokes 1/2 pack of cigarettes per day. He slept exceptionally well last night but reports waking up tired this morning. He denies recent trauma, new medications, or illicit drug use. He has been dieting to lose weight recently and reports 8 lbs of weight loss over the past 3 weeks. 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 Because yesterday was orientation, today was his first day in the workshop. He states that he did not come in contact with any chemicals or metals today but does report standing for extensive periods of time. He states that he has been experiencing fatigue for the past month that requires him to take multiple naps during the day. He also reports increased urinary frequency, urgency, and pain with initial urination that ceases with continued urine stream. Patient does not have a PCP and has never gotten a colonoscopy. He reports fee ling stomach cramps a week ago but denies hemorrhoids, blood in stool, diarrhea, or constipation. Patient is severely anemic. Unknown etiology and denies any GI bleeding. At this time we will go ahead and check iron studies and working out for causes of anemia. Patient will get GI consultation as well. Allergies iodine Allergy (Intermediate, Verified 04/19/25 12:02) Nausea/Vomiting Home medications list reviewed: Yes Home Medications: Amlodipine [Norvasc*] 10 mg PO DAILY 04/19/25 Losartan/Hydrochlorothiazide [Losartan-Hctz 50-12.5 mg Tab] 100 mg PO DAILY 04/19/25 - Past Medical/Surgical History Diabetic: No -: hypertension -: Muse's palsy - 2020 -: Lymph node drainage - 1975 - Family History Father Family History: Reviewed- Non-Contributory - Social History Smoking Status: Current every day smoker Alcohol use: Yes CD- Drugs: No Review of Systems 10-point ROS is otherwise unremarkable General: Weakness Eyes: Unremarkable ENT: Unremarkable Respiratory: Cough, Sputum Cardiovascular: Unremarkable Gastrointestinal: Abdominal Pain Genitourinary: Dysuria, Frequency, Urgency Musculoskeletal: Unremarkable Integumentary: Unremarkable Neurological: Unremarkable Lymphatics: Unremarkable Physical Examination - Physical Exam General: Alert, In no apparent distress, Oriented x3 HEENT: Atraumatic, Normocephalic, PERRLA, EOMI Neck: Supple, JVD not distended, No Thyromegaly Respiratory: Clear to auscultation bilaterally, Normal air movement Cardiovascular: No edema, Normal pulses, Regular rate/rhythm, Normal S1 S2, No gallops, No rubs, No murmurs Capillary refill: Brisk Gastrointestinal: Normal bowel sounds Musculoskeletal: No clubbing, No swelling, No contractures, No erythema, No tenderness, No warmth Integumentary: No rashes, No breakdown, No significant lesion, No tenderness/swelling, No erythema, No warmth, No cyanosis Neurological: Normal gait, Normal speech, Normal strength at 5/5 x4 extr, Normal tone, Sensation intact, Normal affect Lymphatics: No axilla or inguinal lymphadenopathy External genitalia: Deferred Rectal: Deferred - Studies Laboratory Data (last 24 hrs) 04/19/25 04/19/25 04/19/25 08:09 08:09 08:09 WBC 6.30 Hgb 7.6 L Hct 24.2 L Plt Count 495 H PT 12.1 INR 1.07 Sodium 130 L Potassium 3.7 BUN 15 Creatinine 1.55 H Glucose 116 H Magnesium 2.2 Total Bilirubin 0.3 AST 18 ALT 22 Alkaline Phosphatase 108 Assessment & Plan - Problems (Diagnosis) (1) Seizure disorder Current Visit: Yes Status: Acute (2) Anemia, iron deficiency Current Visit: Yes Status: Acute (3) Alcohol abuse Current Visit: Yes Status: Acute (4) Tobacco use Current Visit: Yes Status: Acute - Plan Plan: 1. Patient was here disorder; patient could have had a syncopal episode which led to seizure-like activity. Nobody really witnessed him and he was not incontinent or did not have any tongue biting. Patient appeared to be very stiff after he fell. I believe he is severely anemic and had a syncopal event but will continue monitor him and seizure precautions are needed. Neurology consulted. 2. Anemia; unknown etiology. Male that is 60 years old should not be severely anemic and he has not had any GI workup in the past. Will get GI consultation for assistance in patient's care. 3. Tobacco and alcohol abuse/use; counseled regarding cessation. This increases patient risk of malignancies and will need to further evaluate him prior to discharging 4. GI DVT prophylax Discharge Plan: Home Plan to discharge in: Greater than 2 days - Advance Directives Does patient have a Living Will: No Does patient have a Durable POA for Healthcare: No - Code Status/Comfort Care Code Status Assessed: Yes Code Status: Full Code Critical Care: No Time Spent Managing PTS Care (In Minutes): 45
[2025-04-19 11:59] VITALS: BMI 29.6
[2025-04-19] MEDS ORDERED: SODIUM CHLORIDE 0.9% 10ML INJ IV PRN (12:06)
[2025-04-19 13:17] LABS: Absolute Lymphocytes (CBC) 0.9 K/uL (0.7-4.9); Hematocrit 25.1 % (39.6-49.0); Hemoglobin 7.6 g/dL (13.6-17.9); MCH 20.1 pg (27.0-35.0); MCHC 30.2 g/dL (32.0-36.0); MCV 66.5 fL (80-100); MPV 6.8 fL (7.6-11.3); Nucleated RBC Absolute Count 0.0 (0-0); Nucleated Red Blood Cells % 0.0 % (0-0); RBC Red Blood Cell Count 3.78 M/uL (4.33-5.43); White Blood Count 6.70 thou/uL (4.3-10.9)
[2025-04-19 13:19] LABS: Percent Reticulocyte Count 1.43 % (0.4-2.05); RBC Red Blood Cell Count 3.92 M/uL (4.33-5.43)
[2025-04-19] MEDS: PANTOPRAZOLE 40 MG INJ IVP ONE (13:37)
[2025-04-19] MEDS: NA CHLORIDE 0.9% 1,000 ML IV SCH (13:37)
[2025-04-19] MEDS: levETIRAcetam 500 MG in NA CHLORIDE 0.9% 100 ML IV SCH (13:38)
[2025-04-19 13:44] LABS: Anion Gap 11.3 mEq/L (5.0-15.0); BUN Blood Urea Nitrogen 16.0 mg/dL (7-18); Glucose Level 108.0 mg/dL (74-106); Iron 15.0 ug/dL (65-175); Potassium 4.3 mEq/L (3.5-5.1)
[2025-04-19 15:35] LABS: Hematocrit 24.2 % (39.6-49.0); Hemoglobin 7.5 g/dL (13.6-17.9)
--- NOTE | 2025-04-19 18:49 | RAD REPORT ---
EXAMINATION: MR Brain W/Wo Cont CLINICAL INDICATION: [facility] MAIN N New onset seizure TECHNIQUE: Multiplanar multisequence MR images of the brain with and without were obtained before and after intr avenous administration of 20 mL MultiHance. COMPARISON: Head CT 04/19/2025 and 02/06/2025 FINDINGS: Scattered T2/FLAIR hyperintensities within the periventricular, deep, and subcortical white matter, n onspecific, but likely suggesting chronic microvascular ischemic changes, overall stable. Stable ventriculomegaly, out of proportion to the degree of sulcal prominence. Diffusion weighted/ADC mapping images do not reveal evidence of an acute infarction or other diffusio n signal abnormality. No evidence of intracranial hemorrhage. No susceptibility signal abnormality. Ventricles are normal caliber. Midline structures are unremarkable. No abnormal enhancement or mass effect. Major arterial and dural venous sinus flow voids are preserve d. No extra-axial fluid collection. No fluid within the visualized sinuses/mastoids. IMPRESSION: No acute intracranial abnormality seen. No abnormal enhancement or mass effect. Stable ventriculomegaly, somewhat out of proportion to sulci prominence. Please correlate clinically for normal pressure hydrocephalus. Alternatively, this could relate to centrally predominant volume loss.
[2025-04-19] MEDS: FLU (Fluarix) 25-26 (6MOS UP)/PF 45 MCG/0.5 ML Syringe IM ONE (19:00)
[2025-04-19] MEDS ORDERED: levETIRAcetam 500 MG TAB PO SCH (21:00)
[2025-04-19] MEDS ORDERED: PANTOPRAZOLE 40 MG INJ IVP SCH (21:00)
[2025-04-20 06:29] LABS: Absolute Lymphocytes (CBC) 1.3 K/uL (0.7-4.9); Hematocrit 21.8 % (39.6-49.0); Hemoglobin 7.0 g/dL (13.6-17.9); MCH 21.1 pg (27.0-35.0); MCHC 32.0 g/dL (32.0-36.0); MCV 66.1 fL (80-100); MPV 6.8 fL (7.6-11.3); Nucleated RBC Absolute Count 0.0 (0-0); Nucleated Red Blood Cells % 0.0 % (0-0); RBC Red Blood Cell Count 3.30 M/uL (4.33-5.43); White Blood Count 6.20 thou/uL (4.3-10.9)
[2025-04-20 06:53] LABS: ALT/SGPT 17.0 U/L (16-61); AST/SGOT 12.0 U/L (15-37); Albumin 2.6 g/dL (3.4-5.0); Albumin/Globulin Ratio 0.6 (1.1-1.8); Alkaline Phosphatase 93.0 U/L (45-117); Anion Gap 8.0 mEq/L (5.0-15.0); BUN Blood Urea Nitrogen 16.0 mg/dL (7-18); Ferritin 4.7 ng/mL (26-388); Globulin 4.3 g/dL (2.3-3.5); Glucose Level 127.0 mg/dL (74-106); Iron 12.0 ug/dL (65-175); Potassium 4.0 mEq/L (3.5-5.1); Thyroid Stimulating Hormone 1.8 uIU/mL (0.358-3.740); Transferrin 283.0 mg/dL (200-360)
[2025-04-20 07:05] LABS: PT Prothrombin Time 12.0 SECONDS (10-13.0); Protime INR 1.06
[2025-04-20] MEDS: PNEUMOCOCCAL VACCINE 0.5 ML IMVAC ONE (09:00)
[2025-04-20 09:51] LABS: Blood Morphology Comment NOTED (NOT SEEN); Hypochromasia 1+; Microcytosis 1+
[2025-04-20 10:56] LABS: White Blood Cell Scan OK (OK)
[2025-04-20] MEDS: SOD FERRIC GLUC COMPLX/SUCROSE 125 MG in NA CHLORIDE 0.9% 100 ML IV SCH (12:20)
[2025-04-20] MEDS: CYANOCOBALAMIN 1000MCG/ML INJ IM ONE (12:21)
[2025-04-20] MEDS: NA CHLORIDE 0.9% 250 ML ONE (14:32)
[2025-04-20] MEDS: BISACODYL E.C. 5 MG TAB PO ONE (15:14)
[2025-04-20] MEDS: GOLYTELY 4000 ML PO SCH (17:24)
[2025-04-21 04:50] LABS: Absolute Lymphocytes (CBC) 1.2 K/uL (0.7-4.9); Hematocrit 23.3 % (39.6-49.0); Hemoglobin 7.5 g/dL (13.6-17.9); MCH 22.1 pg (27.0-35.0); MCHC 32.2 g/dL (32.0-36.0); MPV 6.9 fL (7.6-11.3); Nucleated RBC Absolute Count 0.0 (0-0); Nucleated Red Blood Cells % 0.1 % (0-0); RBC Red Blood Cell Count 3.40 M/uL (4.33-5.43); White Blood Count 5.80 thou/uL (4.3-10.9)
[2025-04-21 04:55] LABS: MCV 68.4 fL (80-100)
[2025-04-21 04:56] LABS: PT Prothrombin Time 13.5 SECONDS (10-13.0); Protime INR 1.2
[2025-04-21 05:06] LABS: ALT/SGPT 15 U/L (16-61); AST/SGOT < 10 U/L (15-37); Albumin 2.7 g/dL (3.4-5.0); Albumin/Globulin Ratio 0.7 (1.1-1.8); Alkaline Phosphatase 87 U/L (45-117); Anion Gap 5.6 mEq/L (5.0-15.0); BUN Blood Urea Nitrogen 14 mg/dL (7-18); Globulin 4.0 g/dL (2.3-3.5); Glucose Level 99 mg/dL (74-106); Potassium 3.6 mEq/L (3.5-5.1)
[2025-04-21] MEDS ORDERED: LIDOCAINE 1% MPF 5 ML VIAL ONE (13:40)
[2025-04-21] MEDS: Ringers Lactate 1,000 ML IV ONE (13:50)
[2025-04-21] MEDS ORDERED: GLYCOPYRROLATE 0.2 MG/ML SYR ONE (15:04)
[2025-04-21 15:30] VITALS: O2SAT 100
--- NOTE | 2025-04-21 19:29 | RAD REPORT ---
EXAM: Chest Abdomen Pelvis W Cont CLINICAL INDICATION: Male, 60 years S/P COLONOSCOPY, CIRCUMFERENTIAL COLON MASS TECHNIQUE: CT chest, abdomen and pelvis was performed, with IV contrast, as per department protocol. Axial, sagittal and coronal reconstructions were obtained. One or more of the following dose reduction techniques were used: Automated exposure control, adjustment of the mA and/or kV according to the patient size, and/or iterative reconstruction. Unless otherwise specified, incidental findings do not require dedicated imaging follow-up. [id number]. COMPARISON: No prior exams FINDINGS: ---THORAX--- LOWER NECK AND CHEST WALL: Visualized thyroid gland and soft tissues are normal. MEDIASTINUM AND LYMPH NODES: No mediastinal mass or fluid collection. Normal size mediastinal, hilar, and axillary lymph nodes. Diffuse esophageal wall thickening. THORACIC AORTA: No thoracic aortic aneurysm. PULMONARY ARTERIES: Caliber is within normal limits. HEART: Normal heart size. No coronary calcifications. No significant pericardial effusion. LUNGS AND AIRWAYS: Airways are clear. No evidence of airspace or interstitial process. No suspicious and/or stable pulmonary nodules. PLEURA: No pleural effusion. No pneumothorax. ---ABDOMEN/PELVIS--- UPPER GI: No significant abnormality. LIVER: Hepatic steatosis. Benign appearing and/or stable lesions are identified. No suspicious mass. GALLBLADDER/BILE DUCTS: No biliary ductal dilatation.? PANCREAS: No mass, ductal dilation, or jude-pancreatic fluid. SPLEEN: Unremarkable. ADRENALS: No adrenal masses. KIDNEYS AND URETERS: No hydronephrosis.Low density and/or too small to characterize renal lesions whi ch are statistically benign. No ureteral calculi. ABDOMINAL AORTA AND OTHER VESSELS: Moderate atherosclerotic changes without aortic aneurysm. PERITONEUM: No abnormal free fluid. No free air. LYMPH NODES: Enlarged rounded ileocolic mesenteric lymph nodes, the largest measuring 9 mm in short a xis. ABDOMINAL WALL: Unremarkable SMALL BOWEL/COLON: Concentric nonobstructing mass present at the cecum. This measures at least 5.1 cm in length. Normal appendix. URINARY BLADDER: Underdistended but grossly unremarkable. REPRODUCTIVE ORGANS: No pathologic process. ---COMBINED--- MUSCULOSKELETAL: No acute or suspicious osseous abnormality. ADDITIONAL FINDINGS: None. IMPRESSION: Annular mass at the cecum consistent with colonic adenocarcinoma. 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 No definite evidence of distant metastatic disease. Note that there are multiple subcentimeter low-density liver lesions which are favored jassig n. MRI could better characterize.
[2025-04-22 05:44] LABS: Absolute Lymphocytes (CBC) 1.1 K/uL (0.7-4.9); Hematocrit 23.8 % (39.6-49.0); Hemoglobin 7.8 g/dL (13.6-17.9); MCH 22.4 pg (27.0-35.0); MCHC 32.8 g/dL (32.0-36.0); MCV 68.2 fL (80-100); MPV 7.0 fL (7.6-11.3); Nucleated RBC Absolute Count 0.0 (0-0); Nucleated Red Blood Cells % 0.0 % (0-0); RBC Red Blood Cell Count 3.49 M/uL (4.33-5.43); White Blood Count 4.60 thou/uL (4.3-10.9)
[2025-04-22 06:02] LABS: ALT/SGPT 15.0 U/L (16-61); AST/SGOT 12.0 U/L (15-37); Albumin 2.7 g/dL (3.4-5.0); Albumin/Globulin Ratio 0.7 (1.1-1.8); Alkaline Phosphatase 88.0 U/L (45-117); Anion Gap 8.6 mEq/L (5.0-15.0); BUN Blood Urea Nitrogen 7.0 mg/dL (7-18); Globulin 4.0 g/dL (2.3-3.5); Glucose Level 88.0 mg/dL (74-106); Potassium 3.6 mEq/L (3.5-5.1)
--- NOTE | 2025-04-22 18:07 | CON ---
Date of Consultation: 04/22/2025 Reason For Service: Colonic mass. History Of Present Illness: This is the case of a 60-year-old patient with history of hypertension a nd alcohol use, admitted to the hospital with a seizure that happened at work. During workup, the kevon jain was found to be anemic, so as part of a workup, a colonoscopy was ordered and found to have a c olonic mass. He is seen was eating well. Actually, he is hungry right now. He wants to eat. He is having bowel movements, although, the colonic mass was good enough to limit the colonoscopy due to t he size of it. He denies any dysuria, hematuria, hematochezia. He has every now and then some blood in the stools that he thought it was related to hemorrhoids. No constipation needed. He stays havi ng normal bowel movement. The only reason he says he came here is because of his seizures. Past Medical History: Hypertension, Muse's palsy. Social History: He drinks. He was advised the importance of alcohol cessation. He does not smoke. Surgeries: No previous colonoscopies ever. Family History: No history of colon cancer. Review of Systems: Other than the seizures at this moment, he does not have abdominal pain. He is very hungry. He want s to eat. No shortness of breath. No chest pain at this moment. Physical Examination: Vital Signs: Reviewed. General: The patient is awake, alert. In no distress. Oriented x3. Eyes: Pupils are equal and reactive, anicteric. Neck: Supple. Chest: Clear. Heart: S1 and S2. Abdomen: Soft and depressible. No guarding or rebound or peritoneal signs. Rectal: Deferred. Extremities: Good capillary refill. Laboratory Data: Blood work shows WBC count of 4.6, hemoglobin of 7.8, and platelets of 351. Sodium is 138, chloride is 109, and glucose is 88. I saw the report from a colonoscopy done yesterday. Th ere are 2 areas of interest, one in the ascending colon, another one in the proximal rectum with mass es in those regions. Biopsies were done, are still pending. The CAT scan of the abdomen and pelvis done, showing an annular mass in cecum consistent with possible colonic malignancy and large ileocoli c mesenteric lymph nodes reflecting renal-santa disease. No definite evidence of distal metastasis. There were also multiple subcentimeter low-density lesions in the liver. The mass does not look to be obstructed at this moment. It is about 5.1 cm in length. Assessment/plan: This is a 60-year-old patient with incidental finding of a colonic mass. He came h ere initially for seizures, is not obstructed at this moment. He wants to eat. We advised him to ge t a soft diet, then he is going to have to be referred to a colorectal surgeon. We explained to him the biopsies results are not pending yet, but not only he has an ascending colon also he has a rectal mass. It also has lymph node enlargement and those lesions in the liver. It will require more work up to figure out if this is metastatic disease or not. I believe should be taken care of by [facility] Special[facility], which is not available at this moment in this institution, but if he gets discharged, maico peres has to be referred to Colorectal Surgery. ROMMEL/MENDEZ Voice ID: [id number] Report ID: [id number]
--- NOTE | 2025-04-22 18:12 | P.PN ---
Subjective Date of Service: 04/22/25 Chief Complaint: Now notes LLQ pain. Colonoscopy with 5 cm mass at [address] -> mass in cecu Subjective: New changes Review of Systems 10-point ROS is otherwise unremarkable General: Weakness (Improved. ) Physical Examination - Vital Signs Temperature: 98.0 F Blood Pressure: 133/69 Pulse: 64 Respirations: 16 Pulse Ox (%): 99 - Physical Exam General: Alert, In no apparent distress, Oriented x3 HEENT: Atraumatic, Normocephalic, PERRLA, EOMI Neck: Supple Respiratory: Normal air movement Cardiovascular: Normal pulses, Regular rate/rhythm Gastrointestinal: Soft and benign, No tenderness, No rebound, No guarding Neurological: Normal speech, Normal strength at 5/5 x4 extr Assessment And Plan - Current Problems (Diagnosis) (1) Anemia, iron deficiency Current Visit: Yes Status: Acute (2) Mass of colon Current Visit: Yes Status: Acute - Plan REC: 1) Barium enema to define if one or two masses (cecum and descending/sigmoid colon). Though procedure now not available at hospital 2) Consider repeat colonoscopy 3) Clear liquid diet
[2025-04-22 18:25] LABS: Sqamous Epithelial <5 /HPF (None Seen); Urine Micro Reflex YN NO BILL MICROSCOPIC
[2025-04-23] MEDS ORDERED: CYANOCOBALAMIN 1000MCG/ML INJ IM SCH (09:00)
[2025-04-23 12:17] LABS: Absolute Lymphocytes (CBC) 1.0 K/uL (0.7-4.9); Hematocrit 24.4 % (39.6-49.0); Hemoglobin 7.7 g/dL (13.6-17.9); MCH 21.9 pg (27.0-35.0); MCHC 31.5 g/dL (32.0-36.0); MCV 69.5 fL (80-100); MPV 6.7 fL (7.6-11.3); Nucleated RBC Absolute Count 0.0 (0-0); Nucleated Red Blood Cells % 0.0 % (0-0); RBC Red Blood Cell Count 3.51 M/uL (4.33-5.43); White Blood Count 4.20 thou/uL (4.3-10.9)
[2025-04-23 12:34] LABS: ALT/SGPT 21.0 U/L (16-61); AST/SGOT 16.0 U/L (15-37); Albumin 2.6 g/dL (3.4-5.0); Albumin/Globulin Ratio 0.7 (1.1-1.8); Alkaline Phosphatase 91.0 U/L (45-117); Anion Gap 9.0 mEq/L (5.0-15.0); BUN Blood Urea Nitrogen 6.0 mg/dL (7-18); Globulin 4.0 g/dL (2.3-3.5); Glucose Level 97.0 mg/dL (74-106); Potassium 4.0 mEq/L (3.5-5.1)
[2025-04-23 13:02] LABS: Platelets, Giant FEW; White Blood Cell Scan OK (OK)
[2025-04-23 13:03] LABS: Anisocytosis 1+; Blood Morphology Comment NOTED (NOT SEEN); Hypochromasia 1+; Microcytosis 1+; Ovalocytes SLIGHT; Poikilocytosis SLIGHT; Polychromasia SLIGHT
--- NOTE | 2025-04-23 14:16 | P.PN ---
Date of Service: 04/20/25 Subjective Patient appears to be doing well. Patient denies any new complaints. Clinical symptoms are stable. No more seizure-like activity. Blood transfusion required. Severely anemic. GI consulted for colonoscopy and EGD evaluation. Physical Examination - Vitals Reviewed - Physical Exam General: Alert, In no apparent distress, Oriented x3 Respiratory: Clear to auscultation bilaterally, Normal air movement Cardiovascular: Regular rate/rhythm, Normal S1 S2, No murmurs Gastrointestinal: Soft; NT/ND; Normal bowel sounds Musculoskeletal: No clubbing, No tenderness, No warmth Integumentary: bruising Neurological: No focal deficits appreciated Lymphatics: No inguinal lymphadenopathy appreciable Assessment & Plan - Problems (Diagnosis) (1) Seizure disorder Current Visit: Yes Status: Acute (2) Anemia, iron deficiency Current Visit: Yes Status: Acute (3) Alcohol abuse Current Visit: Yes Status: Acute (4) Tobacco use Current Visit: Yes Status: Acute - Plan Continue with plan of care as mentioned below: 1. Patient was here disorder; patient could have had a syncopal episode which led to seizure-like activity. Nobody really witnessed him and he was not incontinent or did not have any tongue biting. Patient appeared to be very stiff after he fell. I believe he is severely anemic and had a syncopal event but will continue monitor him and seizure precautions are needed. Neurology consulted. 2. Anemia; unknown etiology. Male that is 60 years old should not be severely anemic and he has not had any GI workup in the past. Will get GI consultation for assistance in patient's care. Will check a CEA level as well 3. Tobacco and alcohol abuse/use; counseled regarding cessation. This increases patient risk of malignancies and will need to further evaluate him prior to discharging 4. GI DVT prophylax Discharge Plan: Home Plan to discharge in: Greater than 2 days - Advance Directives Does patient have a Living Will: No Does patient have a Durable POA for Healthcare: No - Code Status/Comfort Care Code Status Assessed: Yes Code Status: Full Code Critical Care: No Time Spent Managing PTS Care (In Minutes): 30
--- NOTE | 2025-04-23 14:23 | P.PN ---
Date of Service: 04/21/25 Subjective Patient seen by GI and scheduled to get EGD and colonoscopy in AM. Will continue to monitor clinical symptom. Prep is currently being done. Physical Examination - Vitals Reviewed - Physical Exam General: Alert, In no apparent distress, Oriented x3 Respiratory: Clear to auscultation bilaterally, Normal air movement Cardiovascular: Regular rate/rhythm, Normal S1 S2, No murmurs Gastrointestinal: Soft; NT/ND; Normal bowel sounds Musculoskeletal: No clubbing, No tenderness, No warmth Integumentary: bruising Neurological: No focal deficits appreciated Lymphatics: No inguinal lymphadenopathy appreciable Assessment & Plan - Problems (Diagnosis) (1) Seizure disorder Current Visit: Yes Status: Acute (2) Anemia, iron deficiency Current Visit: Yes Status: Acute (3) Alcohol abuse Current Visit: Yes Status: Acute (4) Tobacco use Current Visit: Yes Status: Acute - Plan Continue with plan of care as mentioned below: 1. Patient with seizure disorder. Continue with antiepileptics. Will go ahead and have outpatient neurology workup. 2. Anemia; unknown etiology. Male that is 60 years old should not be severely anemic and he has not had any GI workup in the past. Will get GI consultation for assistance in patient's care. Will check a CEA level as well 3. Tobacco and alcohol abuse/use; counseled regarding cessation. This increases patient risk of malignancies and will need to further evaluate him prior to discharging 4. GI DVT prophylax Discharge Plan: Home Plan to discharge in: Greater than 2 days - Advance Directives Does patient have a Living Will: No Does patient have a Durable POA for Healthcare: No - Code Status/Comfort Care Code Status Assessed: Yes Code Status: Full Code Critical Care: No Time Spent Managing PTS Care (In Minutes): 30
--- NOTE | 2025-04-23 14:31 | P.PN ---
Date of Service: 04/22/25 Subjective Colonoscopy revealed colon mass. CT also reveals another mass in the ascending colon. This around the cecal region. General surgery has seen the patient and recommended colorectal surgery follow-up. Plan to discharge patient over the next 24 to 48 hours as long as he is tolerating diet and he will need outpatient follow-up with for colorectal surgery. Will check a CEA level. Physical Examination - Vitals Reviewed - Physical Exam General: Alert, In no apparent distress, Oriented x3 Respiratory: Clear to auscultation bilaterally, Normal air movement Cardiovascular: Regular rate/rhythm, Normal S1 S2, No murmurs Gastrointestinal: Soft; NT/ND; Normal bowel sounds Musculoskeletal: No clubbing, No tenderness, No warmth Neurological: No focal deficits appreciated Assessment & Plan - Problems (Diagnosis) (1) Seizure disorder Current Visit: Yes Status: Acute (2) Anemia, iron deficiency Current Visit: Yes Status: Acute (3) Alcohol abuse Current Visit: Yes Status: Acute (4) Tobacco use Current Visit: Yes Status: Acute - Plan Continue with plan of care as mentioned below: 1. Patient with seizure disorder. Outpatient neurology workup. MRI of the brain was negative 2. Anemia; unknown etiology. Male that is 60 years old should not be severely anemic and he has not had any GI workup in the past. Colonoscopy with colon mas s and CT scan also confirms colonic mass. Will check a CEA level as well 3. Tobacco and alcohol abuse/use; counseled regarding cessation. This increases patient risk of malignancies and will need to further evaluate him prior to discharging 4. GI DVT prophylax Discharge Plan: Home Plan to discharge in: Greater than 2 days - Advance Directives Does patient have a Living Will: No Does patient have a Durable POA for Healthcare: No - Code Status/Comfort Care Code Status Assessed: Yes Code Status: Full Code Critical Care: No Time Spent Managing PTS Care (In Minutes): 30
--- NOTE | 2025-04-23 14:33 | P.PN ---
Date of Service: 04/23/25 Subjective Doing well with no new complaints. Seems little frustrated as he was not able to get definitive treatment here but unfortunately we do not have colorectal surgery available and it will be an elective procedure. Patient will need to follow-up for surgical evaluation. Dr. Gates is a local colorectal surgeon who he can follow-up with and we will given the number of physicians in the [place] area that he can follow-up with as well. Will check a CEA level and advance his diet and anticipate discharge in a.m. Physical Examination - Vitals Reviewed - Physical Exam General: Alert, In no apparent distress, Oriented x3 Respiratory: Clear to auscultation bilaterally, Normal air movement Cardiovascular: Regular rate/rhythm, Normal S1 S2, No murmurs Gastrointestinal: Soft; NT/ND; Normal bowel sounds Musculoskeletal: No clubbing, No tenderness, No warmth Neurological: No focal deficits appreciated Assessment & Plan - Problems (Diagnosis) (1) Seizure disorder Current Visit: Yes Status: Acute (2) Anemia, iron deficiency secondary to colorectal cancer Current Visit: Yes Status: Acute (3) Alcohol abuse Current Visit: Yes Status: Acute (4) Tobacco use Current Visit: Yes Status: Acute - Plan Continue with plan of care as mentioned below: 1. Patient with seizure disorder. Outpatient neurology workup. MRI of the brain was negative 2. Anemia; unknown etiology. Hemoglobin is stable. Will go ahead and work on discharge planning. Patient with colorectal cancer and will need continued outpatient workup. 3. Colorectal carcinoma; outpatient follow-up with colorectal surgery and oncology to stage the cancer 3. Tobacco and alcohol abuse/use; counseled regarding cessation. This increases patient risk of malignancies and will need to further evaluate him prior to discharging 4. GI DVT prophylax Discharge Plan: Home Plan to discharge in: Greater than 2 days - Advance Directives Does patient have a Living Will: No Does patient have a Durable POA for Healthcare: No - Code Status/Comfort Care Code Status Assessed: Yes Code Status: Full Code Critical Care: No Time Spent Managing PTS Care (In Minutes): 30
--- NOTE | 2025-04-24 05:38 | CON ---
Date of Consultation: 04/20/2025 Reason For Consultation: Iron deficiency anemia. History Of Present Illness: The patient is a 59-year-old male with history of hypertension, Muse's palsy, lymph node drainage since 1975, and alcohol abuse. The patient came in his usual stat e of health until he was brought to the emergency room after a generalized tonic-clonic seizure at [facility]. In hospital, he was noted to be anemic and found to have iron deficiency anemia with hemoglobin of 7.0, MCV of 66, iron saturation of 3%, and ferritin of 4.7. The patient states he denies ever see ing any blood. He denies any melena, hematochezia, hematemesis, coffee-ground emesis, hemoptysis, ep istaxis, hematuria, dysuria, polyuria, polydipsia. No blood seen at all. Past Medical History: Significant for hypertension, Muse's palsy in 2020, lymph node drainage in , and alcohol abuse. Medications: At home, it appears really none. Allergies: TO IODINE HE REPORTS. Social History: He is . He has 1 son. He is positive for tobacco, smokes about a pack a da y. Drinks alcohol 4 beers per day on the weekends, maybe 6 beers in a day on the weekend. Family History: Father of stomach cancer, also had end-stage liver disease. Father with alcoho l history. Mother is alive still with old age he reports. Review of Systems: The patient had seizures, but he denies any melena, hematochezia, hematemesis, coffee-ground emesis, hemoptysis, epistaxis, hematuria, dysuria, polyuria, polydipsia, chest pain, shortness of breath, sei zure, syncope, muscle aches, joint aches. He does have seizures. No muscle aches. No joint pains. No depression, anxiety. Physical Examination: Vital Signs: He is 5 feet 8 inches, 195 pounds, BMI of 29.6 kg/m. He has temperature 98.3 degrees F ahrenheit, pulse 84, respirations 20, blood pressure 111/65, O2 saturation 98%. HEENT: Normocephalic, atraumatic. Anicteric. Pupils equal, round, and reactive to light. Extraocu lar movements are intact. Oropharynx is clear. Neck: Supple. No masses. Respirations: Clear to auscultation bilaterally. Cardiac: Regular rate and rhythm. Gastrointestinal: Positive bowel sounds. Soft, nontender, nondistended. No hepatosplenomegaly. Mi ldly obese. Extremities: No clubbing, cyanosis, or edema. 2+ pulses. Neuro: Alert and oriented x3. Grossly nonfocal. 5/5 motor strength. Sensation intact to light tyree ch. Laboratory Data: The patient has white count of 6.2, hemoglobin of 7.0, hematocrit of 22, MCV of 66, platelet count of 385, polys of 64%, monocytes 21%, lymphocytes 12%, eosinophils 3%, basophils 1%, P T of 12.0, INR of 1.06. He has sodium 130, potassium 4.0, chloride 111, bicarb 23, BUN of 16, creati nine of 1.4, glucose 127, calcium 7.9, iron saturation 3.0, ferritin of 4.7, total bilirubin 0.2, AST of 12, ALT of 17, alkaline phosphatase 93, creatine kinase 46, total protein 6.9, albumin 2.6 down f rom 3.2 yesterday. On admission due to seizures, he had a head CT which showed no acute abnormality and MRI shows stable ventriculomegaly, somewhat out of proportion to the sulci prominence, otherwise negative. No acute abnormalities found and he had a chest x-ray with no evidence of acute cardiopulm onary disease. Impression: 1. Iron deficiency anemia with hemoglobin 7.0, MCV of 66, iron saturation 3%, ferritin of 4.7. The p atient has not seen any blood including no hematochezia, melena, hematemesis, coffee-ground emesis, h ematuria, hemoptysis, epistaxis, no blood seen at all. We will need to investigate EGD colonoscopy. 2. History of hypertension, Muse's palsy, lymph node drainage in 1975, and alcohol abuse in the past. Recommendation: 1. Agree with packed RBCs now. 2. Continue IV fluids resuscitation. 3. PPI therapy. 4. Colonoscopy and EGD. VIOLETA/MENDEZ Voice ID: [id number] Report ID: [id number]
[2025-04-24 06:42] LABS: Absolute Lymphocytes (CBC) 1.1 K/uL (0.7-4.9); Hematocrit 23.9 % (39.6-49.0); Hemoglobin 7.6 g/dL (13.6-17.9); MCH 22.4 pg (27.0-35.0); MCHC 31.9 g/dL (32.0-36.0); MCV 70.2 fL (80-100); MPV 6.7 fL (7.6-11.3); Nucleated RBC Absolute Count 0.0 (0-0); Nucleated Red Blood Cells % 0.1 % (0-0); RBC Red Blood Cell Count 3.40 M/uL (4.33-5.43); White Blood Count 4.30 thou/uL (4.3-10.9)
[2025-04-24 07:01] LABS: Anion Gap 7.9 mEq/L (5.0-15.0); BUN Blood Urea Nitrogen 6.0 mg/dL (7-18); Glucose Level 100.0 mg/dL (74-106); Potassium 3.9 mEq/L (3.5-5.1)
[2025-04-24 07:02] LABS: ALT/SGPT 17.0 U/L (16-61); AST/SGOT 13.0 U/L (15-37); Albumin 2.6 g/dL (3.4-5.0); Albumin/Globulin Ratio 0.7 (1.1-1.8); Alkaline Phosphatase 88.0 U/L (45-117); Globulin 3.7 g/dL (2.3-3.5); Magnesium 2.2 mg/dL (1.6-2.4)
[2025-04-24 08:13] VITALS: BP 140/76; TEMP 97.9
== END 2025-04-24 09:25 | disposition home or self-care (01) | DRG 375 ==
LOC: ER 07:50 → ERHOLD 10:44 → 2ND 11:45 → OBSVTOIN 04-21 10:36
PROVIDERS: ADMIT Hospitalist; ATTEND Family Medicine
PROC: 30233N1 Transfusion of Nonautologous Red Blood Cells into Peripheral Vein, Percutaneous Approach (ICD-10-PCS; principal; 2025-04-20)
PROC: 0DB68ZX Excision of Stomach, Via Natural or Artificial Opening Endoscopic, Diagnostic (ICD-10-PCS; 2025-04-21)
PROC: 0DB88ZX Excision of Small Intestine, Via Natural or Artificial Opening Endoscopic, Diagnostic (ICD-10-PCS; 2025-04-21)
PROC: 0DB78ZX Excision of Stomach, Pylorus, Via Natural or Artificial Opening Endoscopic, Diagnostic (ICD-10-PCS; 2025-04-21)
PROC: 0DJD8ZZ Inspection of Lower Intestinal Tract, Via Natural or Artificial Opening Endoscopic (ICD-10-PCS; 2025-04-21 14:00)
DX: C19 Malignant neoplasm of rectosigmoid junction (principal); E87.1 Hypo-osmolality and hyponatremia; K92.1 Melena; D50.9 Iron deficiency anemia, unspecified; K64.8 Other hemorrhoids; K62.1 Rectal polyp; I10 Essential (primary) hypertension; K76.9 Liver disease, unspecified; K29.70 Gastritis, unspecified, without bleeding; F41.9 Anxiety disorder, unspecified; N28.9 Disorder of kidney and ureter, unspecified; G40.909 Epilepsy, unspecified, not intractable, without status epilepticus; F10.10 Alcohol abuse, uncomplicated; F17.200 Nicotine dependence, unspecified, uncomplicated; Z79.899 Other long term (current) drug therapy
CPT/HCPCS: 36415; 36430; 70450; 70553; 71045; 71260; 74177; 80048; 80053; 80076; 81001; 82378; 82550; 82607; 82728; 83540; 83735; 84439; 84443; 84466; 84484; 85014; 85018; 85025; 85044; 85610; 86850; 86900; 86901; 86920; 88305; 88312; 93005; 96365; 99285; A9577; G0378; J1953; J2003; J2470; J2704; J2916; J3420; J7030; J7050; J7120; P9016; Q9967